=== PATIENT | male | born 1960 | race Hispanic/Latino ===

== ENCOUNTER 2016-03-19 05:31 | Inpatient (IN) | payer OTHER ==
[2016-03-19 06:35] LABS: Basophils % (Auto) 0.8 % (0.0-1.8); Eosinophils % (Auto) 2.7 % (0.0-4.3); Hematocrit 44.6 % (35.5-45.6); Hemoglobin 15.1 gm/dl (11.8-15.2); Mean Corpuscular HGB Conc 34 % (32-34); Mean Corpuscular Hemoglobin 32 pg (28-32); Mean Corpuscular Volume 95 fl (84-94); Platelet Count 312 K/mm3 (140-440); Red Blood Count 4.71 M/mm3 (3.65-5.03); Red Cell Distribution Width 13.1 % (13.2-15.2); White Blood Count 5.2 K/mm3 (4.5-11.0)
[2016-03-19 06:49] LABS: BUN/Creatinine Ratio 13.33; Blood Urea Nitrogen 8 mg/dL (9-20); Calcium 8.9 mg/dL (8.4-10.2); Carbon Dioxide 21 mmol/L (22-30); Glucose 161 mg/dL (75-100)
[2016-03-19 06:50] LABS: Chloride 93.8 mmol/L (98-107); Potassium 3.9 mmol/L (3.6-5.0); Sodium 133 mmol/L (137-145)
[2016-03-19 06:53] LABS: Anion Gap 22 mmol/L
[2016-03-19 07:22] LABS: Cholesterol 225 mg/dL (50-199); HDL Cholesterol 54 mg/dL (40-59); LDL Cholesterol,Direct 129 mg/dL (50-130); Triglycerides 214 mg/dL (2-149)
--- NOTE | 2016-03-19 07:36 | Emergency Department Report ---
ED Chest Pain HPI - General Chief Complaint: Chest Pain Stated Complaint: CHEST PAIN Time Seen by Provider: 03/19/16 07:32 Source: patient, EMS Mode of arrival: Ambulatory Limitations: No Limitations - History of Present Illness Initial Comments: This is a 55-year-old male who presents to the emergency department via EMS from home with complaint of sternal left-sided chest pain that began about 3 hours prior to presentation. He denies any nausea or vomiting, shortness of breath. He did complain of some left arm numbness earlier. Patient took 650 mg of aspirin and received one sublingual nitroglycerin by EMS and states he is feeling much better. It is not completely resolve but it is much improved down from a 7 out of 10, to a 3 out of 10. He has a history of previous coronary artery disease with ND and has 2 stents placed. The last time he had this was in 2009. Patient had a stress test in February 2015. His kinesiology professor is Dr. Rashard Braden. He admits to drinking about 2 pitchers of beer this evening. He is a former smoker. Denies illicit drug use or abuse. No recent travel or sick contacts at home. 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 - Related Data Home Medications Medication Instructions Recorded Confirmed Last Taken Allopurinol [Zyloprim] 100 mg PO QDAY 03/19/16 03/19/16 03/12/16 Carvedilol [Coreg] 6.25 mg PO BID 03/19/16 03/19/16 03/12/16 Clopidogrel Bisulfate [Plavix] 75 mg PO DAILY 03/19/16 03/19/16 03/12/16 Lisinopril [Zestril TAB] 2.5 mg PO QDAY 03/19/16 03/19/16 03/12/16 Simvastatin [Zocor TAB] 40 mg PO QHS 03/19/16 03/19/16 03/12/16 Allergies Allergy/AdvReac Type Severity Reaction Status Date / Time No Known Allergies Allergy Verified 03/19/16 06:06 FAUZIA score - Fauzia Score Age > 65: (0) No Aspirin use within the Past 7 Days: (1) Yes 3 or more CAD Risk Factors: (1) Yes 2 or more Angina events in past 24 hrs: (1) Yes Known CAD with more than 50% Stenosis: (0) No Elevated Cardiac Markers: (1) Yes ST Deviation Greater than 0.5mm: (0) No FAUZIA Score: 4 ED Review of Systems ROS: Stated complaint: CHEST PAIN Other details as noted in HPI Comment: All other systems reviewed and negative Constitutional: denies: chills, fever Eyes: denies: eye pain, eye discharge, vision change ENT: denies: ear pain, throat pain Respiratory: denies: cough, shortness of breath, wheezing Cardiovascular: chest pain. denies: palpitations Gastrointestinal: denies: abdominal pain, nausea, diarrhea Genitourinary: denies: urgency, dysuria Musculoskeletal: denies: back pain, joint swelling, arthralgia Skin: denies: rash, lesions Neurological: denies: headache, weakness, paresthesias ED Past Medical Hx - Past Medical History Previous Medical History?: Yes Hx Hypertension: Yes Hx Heart Attack/AMI: Yes - Surgical History Past Surgical History?: Yes Hx Coronary Stent: Yes (x2) - Social History Smoking Status: Never Smoker Substance Use Type: Alcohol - Medications Home Medications: Home Medications Medication Instructions Recorded Confirmed Last Taken Type Allopurinol [Zyloprim] 100 mg PO QDAY 03/19/16 03/19/16 03/12/16 History Carvedilol [Coreg] 6.25 mg PO BID 03/19/16 03/19/16 03/12/16 History Clopidogrel Bisulfate [Plavix] 75 mg PO DAILY 03/19/16 03/19/16 03/12/16 History Lisinopril [Zestril TAB] 2.5 mg PO QDAY 03/19/16 03/19/16 03/12/16 History Simvastatin [Zocor TAB] 40 mg PO QHS 03/19/16 03/19/16 03/12/16 History ED Physical Exam - General Limitations: No Limitations - Other Other exam information: GENERAL: The patient is well-developed well-nourished. HEENT: Normocephalic. Atraumatic. Extraocular motions are intact. Patient has moist mucous membranes. Pupils equal reactive to light bilaterally. NECK: Supple. Trachea is midline. CHEST/LUNGS: Clear to auscultation. There is no respiratory distress noted. HEART/CARDIOVASCULAR: Regular. There is no tachycardia. There is no gallop rub or murmur. ABDOMEN: Abdomen is soft, nontender. Patient has normal bowel sounds. There is no abdominal distention. SKIN: There is no rash. There is no edema. There is no diaphoresis. NEURO: The patient is awake, alert, and oriented. The patient is cooperative. The patient has no focal neurologic deficits. The patient has normal speech. MUSCULOSKELETAL: There is no tenderness or deformity. There is no limitation range of motion. There is no evidence of acute injury. ED Course Vital Signs 03/19/16 03/19/16 03/19/16 06:00 07:28 07:31 Temperature 97.6 F Pulse Rate 86 85 82 Respiratory 13 16 Rate Blood Pressure 143/97 156/96 O2 Sat by Pulse 97 99 98 Oximetry 03/19/16 03/19/16 07:36 08:14 Temperature Pulse Rate 86 Respiratory 16 Rate Blood Pressure O2 Sat by Pulse 99 Oximetry - Consultations Consultation #1: Spoke with Dr. Molina of [facility] and he will come see the patient in the emergency department. 03/19/16 10:00 ED Medical Decision Making - Lab Data Result diagrams: 03/19/16 06:26 03/19/16 06:26 - EKG Data -: EKG Interpreted by Me EKG shows normal: sinus rhythm, axis, intervals, QRS complexes, ST-T waves (T- wave inversions to the inferior leads) Rate: normal - EKG Data When compared to previous EKG there are: previous EKG unavailable Interpretation: other (T-wave inversions to the inferior leads) - Radiology Data Radiology results: report reviewed, image reviewed interpreted by me: Chest x-ray did not show any acute process. Heart is normal shape and size. No effusions. No pneumothorax. No signs of pneumonia seen. CT angiography of the chest shows no pulmonary embolism. HEENT coronary artery calcifications. Left coronary artery stent. Few subcentimeter nodular densities at the right lung likely round atelectasis and nodular scarring. - Medical Decision Making 55-year-old male presents with chest pain that started about 3 hours prior to presentation. EKG shows some possible ischemic changes in the inferior leads but no ST elevation ND. Chest x-ray does not show any acute process. First troponin is positive at about 0.1. CT angiography completed that did not show any pulmonary embolism or dissection. Patient started on IV heparin. He had already taken full dose aspirin and received sublingual nitroglycerin. Cardiology is aware. Patient accepted for admission by the hospitalist service. - Differential Diagnosis ND, PE, CHF, pneumonia Critical Care Time: No Critical care attestation.: If time is entered above; I have spent that time in minutes in the direct care of this critically ill patient, excluding procedure time. ED Disposition Clinical Impression: NSTEMI (non-ST elevated myocardial infarction) Hypertension Qualifiers: Hypertension type: essential hypertension Qualified Code(s): I10 - Essential ( primary) hypertension Coronary artery disease Qualifiers: Coronary Disease-Associated Artery/Lesion type: unspecified vessel or lesion type [place] vs. transplanted heart: unspecified whether [place] or transplanted heart Associated angina: with unspecified angina Qualified Code(s): I25.119 - Atherosclerotic heart disease of [place] coronary artery with unspecified angina pectoris Chest pain Qualifiers: Chest pain type: unspecified Qualified Code(s): R07.9 - Chest pain, unspecified Disposition: OP ADMITTED IP TO THIS HOSP Is pt being admited?: Yes Condition: Stable Instructions: Hypertension (ED), Chest Pain (ED) Time of Disposition: 09:59
[2016-03-19] MEDS ORDERED: NACL ONE (08:34)
--- NOTE | 2016-03-19 09:35 | Cat Scan Report ---
FINAL REPORT PROCEDURE: CT ANGIO CHEST TECHNIQUE: Computerized tomographic angiography of the chest was performed after the IV injection of iodinated nonionic contrast including image processing. The image data was postprocessed using 2-dimensional multiplanar reformatted (MPR) and 3-dimensional (MIP and/or volume rendered) techniques. HISTORY: Cp, elevated dimer COMPARISON: None FINDINGS: Heart and pericardium: Faint coronary artery calcifications. Left coronary artery stent. Thoracic aorta: Normal. Pulmonary vasculature: Normal. No pulmonary embolism. Lymph nodes: No enlarged thoracic lymph nodes. Lungs: Mild dependent subsegmental atelectasis. Faint nodular densities likely nodular scars or rounded atelectasis of the right middle lobe 3.9 millimeters seen on series 3, image 57 and 3.5 millimeters seen on image 56. 4 millimeter subpleural nodular density rounded subsegmental atelectasis seen on image 76.. Pleural space: No effusion or pneumothorax. Musculoskeletal structures: No significant abnormality. Upper abdominal structures: 1 centimeter medial segment left lobe hepatic cyst. IMPRESSION: No pulmonary embolism. Faint coronary artery calcifications. Left coronary artery stent. Coronary artery disease risk assessment is recommended. Few sub centimeter nodular densities of the right lung likely rounded atelectasis and nodular scar. Follow-up CT in 6 months time to ensure short-term stability in size/resolution is recommended. 1 centimeter left lobe hepatic cyst.
[2016-03-19] MEDS ORDERED: HEPARIN 10,000 UNITS/10 ML IV ONE ×2 (09:39→19:24)
[2016-03-19 10:03] LABS: INR 0.92 (0.87-1.13); Partial Thromboplastin Time 28.1 Sec. (24.2-36.6)
[2016-03-19] MEDS: HEPARIN/ 0.45% NACL-25,000 UNIT/500 ML 500 ML IV SCH (10:08)
[2016-03-19] MEDS ORDERED: TRIDIL DRIP 50MG/250ML 250 ML ONE (10:21)
[2016-03-19] MEDS ORDERED: PLAVIX ONE (10:29)
[2016-03-19] MEDS ORDERED: PLAVIX PO ONE (10:38)
[2016-03-19] MEDS: TRIDIL DRIP 50MG/250ML 250 ML IV SCH (10:39)
--- NOTE | 2016-03-19 10:58 | Consultation ---
History of Present Illness Consult date: 03/19/16 Consult reason: chest pain History of present illness: 55 year old male admitted due to chest tightness that started 3-4 hours prior to arrival to the ER. Patient is currently asymptomatic. Troponin noted positive. Patient has been out of his meds for 1 week - he is not able to afford his prescriptions. Last seen in our office Feb 15, 2016. ECG reviewed, there is ST elevation noted in the inferior leads associated with inferior Q waves with reciprocal ST depressions in the lateral leads. ECGs were also reviewed by Dr Weaver in order to evaluate whether patient should be taken to clinical lab technologist emergently. Since patient is asymptomatic, and ECG already showing Q waves in the inferior leads it was decided to admits patient, treat him medically and schedule him for elective cath on monday. No need for emergency cath since the event seems to have happened a while ago. Past History Past Medical History: CAD, hypertension Past Surgical History: PTCA Social history: no significant social history Family history: no significant family history Medications and Allergies Allergies Allergy/AdvReac Type Severity Reaction Status Date / Time No Known Allergies Allergy Verified 03/19/16 06:06 Home Medications Medication Instructions Recorded Confirmed Last Taken Type Allopurinol [Zyloprim] 100 mg PO QDAY 03/19/16 03/19/16 03/12/16 History Carvedilol [Coreg] 6.25 mg PO BID 03/19/16 03/19/16 03/12/16 History Clopidogrel Bisulfate [Plavix] 75 mg PO DAILY 03/19/16 03/19/16 03/12/16 History Lisinopril [Zestril TAB] 2.5 mg PO QDAY 03/19/16 03/19/16 03/12/16 History Simvastatin [Zocor TAB] 40 mg PO QHS 03/19/16 03/19/16 03/12/16 History Active Meds: Active Medications Heparin Sodium/Sodium Chloride (Heparin/ 0.45% Nacl-25,000 Unit/500 Ml) 500 mls @ 20 mls/hr IV TITRATE CANDICE; 1,000 UNITS/HR PRN Reason: Protocol Last Admin: 03/19/16 10:08 Dose: 20 mls/hr Nitroglycerin/Dextrose (Tridil Drip 50mg/250ml) 250 mls @ 3 mls/hr IV TITR CANDICE ; 10 MCG/MIN PRN Reason: Protocol Last Admin: 03/19/16 10:39 Dose: 3 mls/hr Review of Systems All systems: negative Physical Examination Vital Signs Temp Pulse BP Pulse Ox 97.6 F 86 143/97 97 03/19/16 06:00 03/19/16 06:00 03/19/16 06:00 03/19/16 06:00 General appearance: no acute distress HEENT: Positive: PERRL Neck: Positive: neck supple Cardiac: Positive: Reg Rate and Rhythm Lungs: Positive: Normal Exam Neuro: Positive: Grossly Intact Abdomen: Positive: Soft Extremities: Present: normal Results 03/19/16 06:26 03/19/16 06:26 Coagulation 03/19/16 Range/Units 07:45 PT 12.3 (12.2-14.9) Sec. INR 0.92 (0.87-1.13) APTT 28.1 (24.2-36.6) Sec. Lipids 03/19/16 Range/Units 06:26 Triglycerides 214 H (2-149) mg/dL Cholesterol 225 H (50-199) mg/dL HDL Cholesterol 54 (40-59) mg/dL Cholesterol/HDL Ratio 4.16 % CBC 03/19/16 Range/Units 06:26 WBC 5.2 (4.5-11.0) K/mm3 RBC 4.71 (3.65-5.03) M/mm3 Hgb 15.1 (11.8-15.2) gm/dl Hct 44.6 (35.5-45.6) % Plt Count 312 (140-440) K/mm3 Lymph # 1.4 (1.2-5.4) K/mm3 Rush # 0.3 (0.0-0.8) K/mm3 Eos # 0.1 (0.0-0.4) K/mm3 Baso # 0.0 (0.0-0.1) K/mm3 Comprehensive Metabolic Panel 03/19/16 Range/Units 06:26 Sodium 133 L (137-145) mmol/L Potassium 3.9 (3.6-5.0) mmol/L Chloride 93.8 L (98-107) mmol/L Carbon Dioxide 21 L (22-30) mmol/L BUN 8 L (9-20) mg/dL Creatinine 0.6 L (0.8-1.5) mg/dL Glucose 161 H (75-100) mg/dL Calcium 8.9 (8.4-10.2) mg/dL - EKG Interpretation EKG: sinus rhythm EKG interpretations - Telemetry EKG Rhythm: Sinus Rhythm Assessment and Plan Non-STEMI Patient ic currently asymptomatic ECG consitent with a completed NE and formation of Q waves inferiorly CAD s/p PCI to LAD and CX in 2009 Systemic Hypertension Hyperlipidemia Non-compliance Recommendations: Admit to CCU IV heparin, IV NTG, asa, lipitor, metoprolol, plavix Echocardiogram Coronary angiography on monday
--- NOTE | 2016-03-19 11:09 | History and Physical Report ---
History of Present Illness Date of examination: 03/19/16 Chief complaint: Chest pain History of present illness: Patient is a 55-year-old man with a history of alcohol abuse (2 big pitchers of beer each night, last drink was prior to presentation), hypertension, dyslipidemia, gout and coronary artery disease status post stents who presents with left severe pressure-like constant radiating to left arm chest pains is helped by nitroglycerin that started 3-4 hours prior to presentation. Currently , patient is chest pain-free free. Troponins were positive. Patient denies any nausea vomiting diaphoresis, Headaches, fever chills cough or abdominal pains. Patient will be admitted to the ICU because he is going to go nitroglycerin titratable drip per cardiology Dr. Molina. Patient admits to being out of his medication for more than a week. Patient has insurance but he uses his co-pay on "other things." Extensive counseling done. Past History Past Medical History: CAD, hypertension Past Surgical History: PTCA Social history: alcohol abuse, full code, other (ex-smoker). denies: smoking, prescription drug abuse, IV drug use Family history: no significant family history Medications and Allergies Allergies Allergy/AdvReac Type Severity Reaction Status Date / Time No Known Allergies Allergy Verified 03/19/16 06:06 Home Medications Medication Instructions Recorded Confirmed Last Taken Type Allopurinol [Zyloprim] 100 mg PO QDAY 03/19/16 03/19/16 03/12/16 History Carvedilol [Coreg] 6.25 mg PO BID 03/19/16 03/19/16 03/12/16 History Clopidogrel Bisulfate [Plavix] 75 mg PO DAILY 03/19/16 03/19/16 03/12/16 History Lisinopril [Zestril TAB] 2.5 mg PO QDAY 03/19/16 03/19/16 03/12/16 History Simvastatin [Zocor TAB] 40 mg PO QHS 03/19/16 03/19/16 03/12/16 History Active Meds: Active Medications Aspirin (Aspirin) 325 mg PO QDAY CANDICE Atorvastatin Calcium (Lipitor) 40 mg PO QHS [facility] Clopidogrel Bisulfate (Plavix) 75 mg PO DAILY [facility] Heparin Sodium/Sodium Chloride (Heparin/ 0.45% Nacl-25,000 Unit/500 Ml) 500 mls @ 20 mls/hr IV TITRATE CANDICE; 1,000 UNITS/HR PRN Reason: Protocol Last Admin: 03/19/16 10:08 Dose: 20 mls/hr Nitroglycerin/Dextrose (Tridil Drip 50mg/250ml) 250 mls @ 3 mls/hr IV TITR CANDICE ; 10 MCG/MIN PRN Reason: Protocol Last Admin: 03/19/16 10:39 Dose: 3 mls/hr Metoprolol Tartrate (Lopressor) 25 mg PO Q12H CANDICE Review of Systems All systems: negative (as HPI and all other ROS reviewed and negative.) Exam - Physical Exam Narrative exam: GEN: WDWN, NAD, AWAKE, ALERT, ORIENTATED 3 HEENT: NCAT, PERRL, EOMI, OP CLEAR NECK: SUPPLE, NO THYROMEGALY, NO JVD, NO LAD CVS: RRR, NORMAL S1S2 LUNGS/CHEST: CTA B, NORMAL CHEST EXPANSION B, GOOD AIR ENTRY B ABD: SOFT NTND, GBS, NO REBOUND OR GUARDING EXT/SKIN: NO SIGNIFICANT EDEMA OR RASH MSK: FROM X 4 EXTREMITIES NEURO: CN 2-12 GROSSLY INTACT, NO FOCAL DEFICITS PSY: CALM - Constitutional Vitals: Temp Pulse Resp BP Pulse Ox 97.6 F 85 23 154/93 100 03/19/16 06:00 03/19/16 10:35 03/19/16 10:35 03/19/16 10:35 03/19/16 10:05 Results - Labs CBC & Chem 7: 03/19/16 06:26 03/19/16 06:26 Labs: Abnormal lab results 03/19/16 03/19/16 03/19/16 Range/Units 06:26 06:26 07:45 MCV 95 H (84-94) fl RDW 13.1 L (13.2-15.2) % D-Dimer 421.46 H (0-234) ng/mlDDU Sodium 133 L (137-145) mmol/L Chloride 93.8 L (98-107) mmol/L Carbon Dioxide 21 L (22-30) mmol/L BUN 8 L (9-20) mg/dL Creatinine 0.6 L (0.8-1.5) mg/dL Glucose 161 H (75-100) mg/dL Troponin T 0.142 H* (0.00-0.029) ng/mL Triglycerides 214 H (2-149) mg/dL Cholesterol 225 H (50-199) mg/dL 03/19/16 Range/Units 08:45 MCV (84-94) fl RDW (13.2-15.2) % D-Dimer (0-234) ng/mlDDU Sodium (137-145) mmol/L Chloride (98-107) mmol/L Carbon Dioxide (22-30) mmol/L BUN (9-20) mg/dL Creatinine (0.8-1.5) mg/dL Glucose (75-100) mg/dL Troponin T 0.134 H* (0.00-0.029) ng/mL Triglycerides (2-149) mg/dL Cholesterol (50-199) mg/dL - Imaging and Cardiology EKG: image reviewed Assessment and Plan Patient is a 55-year-old man with a history of alcohol abuse (2 big pitchers of beer each night, last drink was prior to presentation), hypertension, dyslipidemia, gout and coronary artery disease status post stents who presents with left severe pressure-like constant radiating to left arm chest pains is helped by nitroglycerin that started 3-4 hours prior to presentation. Currently , patient is asymptomatic. Troponins were positive. Patient denies any nausea vomiting diaphoresis, Headaches, fever chills cough or abdominal pains. Patient will be admitted to the ICU because of IV nitroglycerin titratable drip per cardiology Dr. Molina. Patient admits to being out of his medication for more than a week. Patient has insurance but he uses his co-pay on "other things." Extensive counseling done. 1. Non-STEMI: IV heparin, IV nitroglycerin, aspirin statin beta benjamin 2. Alcohol abuse: [facility] protocol, thiamine, watch for withdrawals 3. Coronary artery disease, chronic and worsening due to noncompliance 4. Hypertension related to above 5. DVT prophylaxis: On IV heparin 6. GI prophylaxis: Pepcid Full code Disposition: inpatient care, cardiac cath on Monday Consulted drilling supervisor for ICU admission
[2016-03-19] MEDS ORDERED: ATIVAN IV PRN ×2 (11:12)
[2016-03-19] MEDS ORDERED: HALDOL IV PRN (11:12)
[2016-03-19] MEDS ORDERED: TYLENOL PO PRN (11:13)
[2016-03-19 12:21] LABS: Creatine Kinase MB 4.9 ng/mL (0.0-4.0)
[2016-03-19] MEDS ORDERED: LOPRESSOR ONE (13:01)
[2016-03-19] MEDS ORDERED: VITAMIN B-1 ONE (13:01)
[2016-03-19] MEDS: LOPRESSOR PO SCH (13:05)
[2016-03-19] MEDS: VITAMIN B-1 PO SCH (13:06)
[2016-03-19 18:58] LABS: Creatine Kinase MB 19.8 ng/mL (0.0-4.0)
[2016-03-19] MEDS ORDERED: HEPARIN 10,000 UNITS/10 ML ONE (19:16)
[2016-03-19] MEDS ORDERED: HEPARIN IV ONE (19:24)
[2016-03-19] MEDS: PEPCID PO SCH (22:26)
[2016-03-19] MEDS: AMBIEN PO PRN (22:26)
[2016-03-20 00:57] LABS: Creatine Kinase MB 28.8 ng/mL (0.0-4.0)
--- NOTE | 2016-03-20 01:02 | Admit Criteria Form ---
Admission Criteria Documentation: MYOCARDIAL INFARCTION Clinical Indications for Admission to Inpatient Care (Place 'X' for any and all applicable criteria): Admission is indicated for ANY ONE of the following (1)(2)(3)(4): [X ]I. Acute HI [ ]II. Contraindications and/or Inappropriate clinical situations for Observational Care in patients with Myocardial Infarction, when ANY ONE of the following is required: [ ]a) Patient with High risk of cardiac embolism (e.g, patients with previous cardiac embolism, LVEF < 40%, age >75 and patients with prosthetic valve) 18 [ ]b) Patient with Moderate risk including DM patient, CAD and patient aged 65-75 18 [ ]c) Patient with any change in cardiac biomarker especially troponin should be managed as high risk in an inpatient setting 19 [ ]d) Physician judgement irrespective of ECG and other diagnostic findings 20 [ ]III.General contraindications and/or Inappropriate clinical situations for Observational Care in patients with Myocardial Infarction, when ANY ONE of the following is required: [ ]a) Prediction of prolongation of LOS based on ANY ONE of the following may be considered as a contraindication for observational care 2, 3, 4, 5, 6, 7, 8, 9, 10, 11 [ ]i) Age > 65 yrs. [ ]ii) Patient arriving by ambulance [ ]iii) Patient with high acuity [ ]iv) Patient requiring vital sign monitoring [ ]v) Patient on IV medication [ ]b) Systolic blood pressures 180mmHg 3,12 [ ]c) Patient with altered mental status including delirium and other alteration of consciousness, (3) [ ]d) Patient whose discharge disposition will be to a half-way home or rehabilitation home should not be managed in Emergency Department Observation Unit. CMS rule requires 3 days hospital stay before such placement. 3,13 [ ]e) Patient with failure to thrive due to broad array of etiologies 3 ,16,17 [ ]f) Inability to ambulate 3,14 Extended stay beyond goal length of stay may be needed for (1)(18)(20)(24)(25): [ ]a) Hemodynamic instability, persisting symptoms after intensive medical management, or recurring severe, prolonged symptoms [ ]b) Intravascular procedural complications such as acute vessel closure, stent thrombosis, stent malposition, or vessel dissection (26)(27)(28) [ ]c) Extravascular procedural complications such as retroperitoneal hematoma , pericardial effusion, or cardiac tamponade [ ]d) Entry site complications causing bleeding, hematoma or distal ischemia and requiring ongoing monitoring, surgical repair or surgical thrombectomy(29) [ ]e) Dangerous arrhythmia [ ]f) Complicated percutaneous coronary intervention (e.g., unsuccessful percutaneous coronary intervention or percutaneous coronary intervention of non- [place] vessel) [ ]g) Urgent or emergent surgery for complications of HI (e.g., ventricular rupture, valvular insufficiency) [ ]h) Surgical revascularization via coronary artery bypass graft [ ]i) Heart failure (e.g., pulmonary edema) [ ]j) Unstable pulmonary comorbidities, including COPD or pneumonia (31) [ ]k) Acute renal failure The original [employer] content created by [email or web address] has been revised. The portions of the content which have been revised are identified through the use of italic text or in bold, and [employer] has neither reviewed nor approved the modified material. All other unmodified content is copyright [facility] [employer] Please see references footnoted in the original [facility] edition 2016 Admission Criteria Met: Yes
[2016-03-20] MEDS: LOPRESSOR PO SCH ×2 (03:31→23:48)
--- NOTE | 2016-03-20 09:23 | Progress Note ---
Assessment and Plan Non-STEMI Patient ic currently asymptomatic ECG consitent with a completed GA and formation of Q waves inferiorly CAD s/p PCI to LAD and CX in 2009 Systemic Hypertension Hyperlipidemia Non-compliance Recommendations: IV heparin, IV NTG, asa, lipitor, metoprolol, plavix Echocardiogram Coronary angiography on monday Subjective Date of service: 03/20/16 Principal diagnosis: NSTEMI Interval history: he describes occasional 1-2/10 chest pain overnight. ECG this morning - stable Objective Vital Signs Temp Pulse Resp BP Pulse Ox 03/20/16 08:00 97.6 F 03/20/16 07:15 88 24 140/88 97 03/20/16 07:11 74 19 135/76 99 03/20/16 07:05 73 18 135/76 99 03/20/16 07:00 68 18 135/76 99 03/20/16 06:55 68 18 134/69 100 03/20/16 06:51 69 18 134/69 99 03/20/16 06:45 66 17 134/69 99 03/20/16 06:41 69 18 128/64 99 03/20/16 06:35 70 17 128/64 99 03/20/16 06:30 65 17 128/64 99 03/20/16 06:25 73 19 133/69 98 03/20/16 06:21 77 13 133/69 99 03/20/16 06:15 72 17 133/69 97 03/20/16 06:11 87 17 152/81 98 03/20/16 06:05 93 H 20 152/81 98 03/20/16 06:00 76 16 152/81 98 03/20/16 05:55 78 18 145/81 98 03/20/16 05:51 75 16 145/81 98 03/20/16 05:45 95 H 17 145/81 97 03/20/16 05:41 72 18 138/80 99 03/20/16 05:35 72 18 138/80 99 03/20/16 05:30 73 19 138/80 98 03/20/16 05:25 79 13 145/86 99 03/20/16 05:21 70 17 145/86 100 03/20/16 05:15 74 22 145/86 99 03/20/16 05:11 83 22 138/68 97 03/20/16 05:05 78 21 138/68 97 03/20/16 05:01 78 17 138/68 98 03/20/16 04:55 81 20 138/68 98 03/20/16 04:51 75 17 138/68 98 03/20/16 04:45 71 18 138/68 97 03/20/16 04:41 75 18 145/73 98 03/20/16 04:35 70 17 145/73 99 03/20/16 04:30 74 17 145/73 99 03/20/16 04:25 71 18 136/71 99 03/20/16 04:21 74 18 136/71 99 03/20/16 04:15 74 19 136/71 98 03/20/16 04:11 79 14 141/70 99 03/20/16 04:05 75 17 141/70 99 03/20/16 04:00 77 18 141/70 98 03/20/16 03:55 72 19 134/69 100 03/20/16 03:51 72 21 134/69 99 03/20/16 03:45 67 20 134/69 100 03/20/16 03:41 74 18 121/70 99 03/20/16 03:35 71 21 121/70 99 03/20/16 03:31 130 H 88/65 03/20/16 03:30 75 20 121/70 99 03/20/16 03:25 76 21 129/80 99 03/20/16 03:21 82 22 129/80 98 03/20/16 03:17 74 19 129/80 99 03/20/16 03:15 73 20 129/80 99 03/20/16 03:11 76 20 124/58 99 03/20/16 03:05 91 H 19 124/58 99 03/20/16 03:00 69 13 124/58 98 03/20/16 02:55 76 20 133/77 98 03/20/16 02:51 73 20 133/77 98 03/20/16 02:49 74 19 133/77 98 03/20/16 02:45 74 18 133/77 99 03/20/16 02:41 76 21 121/63 99 03/20/16 02:35 72 20 121/63 98 03/20/16 02:30 72 18 121/63 99 03/20/16 02:25 72 18 128/61 99 03/20/16 02:21 73 18 128/61 99 01/08/17 02:15 73 19 128/61 99 03/20/16 02:11 72 18 136/81 99 03/20/16 02:05 74 18 136/81 99 03/20/16 02:00 77 19 136/81 97 03/20/16 01:55 75 19 135/75 96 03/20/16 01:51 76 19 135/75 96 03/20/16 01:45 79 18 135/75 97 03/20/16 01:41 82 19 134/80 97 03/20/16 01:35 88 17 134/80 97 03/20/16 01:30 78 20 134/80 98 03/20/16 01:25 79 21 126/72 97 03/20/16 01:21 80 21 126/72 97 03/20/16 01:15 75 19 126/72 97 03/20/16 01:11 77 21 128/68 96 03/20/16 01:05 80 19 128/68 97 03/20/16 01:00 76 19 128/68 100 03/20/16 00:55 73 18 131/63 99 03/20/16 00:51 74 22 131/63 99 03/20/16 00:45 71 21 131/63 99 03/20/16 00:41 74 22 141/88 98 03/20/16 00:35 81 15 141/88 99 03/20/16 00:30 81 22 141/88 97 03/20/16 00:25 83 16 147/81 98 03/20/16 00:21 84 21 147/81 98 03/20/16 00:15 81 15 125/62 99 03/20/16 00:11 85 23 125/62 97 03/20/16 00:05 79 19 125/62 98 03/20/16 00:00 76 19 121/59 98 03/19/16 23:55 78 19 125/62 98 03/19/16 23:51 75 20 125/62 98 03/19/16 23:45 88 19 125/62 97 03/19/16 23:41 86 21 121/76 99 03/19/16 23:35 88 19 121/76 97 03/19/16 23:30 84 19 121/76 98 03/19/16 23:25 82 20 125/81 98 03/19/16 23:21 82 18 125/81 98 03/19/16 23:15 87 20 125/81 98 03/19/16 23:11 84 19 111/59 99 03/19/16 23:05 82 21 111/59 99 03/19/16 23:00 81 19 119/79 98 03/19/16 22:55 84 22 111/59 98 03/19/16 22:51 85 16 111/59 98 03/19/16 22:45 80 23 111/59 98 03/19/16 22:41 80 20 128/65 97 03/19/16 22:35 80 17 128/65 97 03/19/16 22:30 83 21 128/65 97 03/19/16 22:25 82 21 132/77 96 03/19/16 22:21 85 20 132/77 96 03/19/16 22:15 82 21 132/77 96 03/19/16 22:11 84 21 127/79 97 03/19/16 22:05 83 21 127/79 97 03/19/16 22:00 85 22 127/79 97 03/19/16 21:55 80 20 145/85 97 03/19/16 21:51 82 23 145/85 97 03/19/16 21:45 97 H 20 145/85 98 03/19/16 21:41 84 18 143/81 98 03/19/16 21:35 87 21 143/81 98 03/19/16 21:30 86 23 143/81 98 03/19/16 21:25 88 11 L 135/85 97 03/19/16 21:21 87 12 135/85 99 03/19/16 21:15 91 H 22 135/85 98 03/19/16 21:11 80 19 121/63 97 03/19/16 21:05 81 20 121/63 98 03/19/16 21:00 81 22 121/63 98 03/19/16 20:55 87 18 149/83 98 03/19/16 20:51 89 17 149/83 98 03/19/16 20:45 88 21 149/83 98 03/19/16 20:41 86 20 141/79 100 03/19/16 20:35 89 17 141/79 99 03/19/16 20:30 83 18 141/79 98 03/19/16 20:25 88 14 133/78 98 03/19/16 20:21 87 11 L 133/78 98 03/19/16 20:15 85 19 133/78 98 03/19/16 20:11 91 H 15 144/87 98 03/19/16 20:05 90 13 144/87 98 03/19/16 20:00 89 20 144/87 97 03/19/16 19:55 84 20 140/79 98 03/19/16 19:51 82 23 140/79 98 03/19/16 19:45 90 20 140/79 97 03/19/16 19:41 88 25 H 132/66 96 03/19/16 19:35 93 H 20 132/66 97 03/19/16 19:31 87 20 132/66 97 03/19/16 19:25 86 18 134/78 97 03/19/16 19:21 84 18 134/78 97 03/19/16 19:15 88 15 134/78 98 03/19/16 19:11 88 19 139/82 97 03/19/16 19:05 89 20 139/82 97 03/19/16 19:00 88 15 139/82 98 03/19/16 18:55 96 H 17 140/92 98 03/19/16 18:51 90 21 140/92 98 03/19/16 18:45 91 H 20 140/92 98 03/19/16 18:41 89 18 145/96 98 03/19/16 18:35 95 H 12 145/96 98 03/19/16 18:30 101 H 20 145/96 98 03/19/16 18:25 86 22 138/68 97 03/19/16 18:23 84 21 138/68 97 03/19/16 18:21 83 22 138/68 97 03/19/16 18:15 85 24 138/68 98 03/19/16 18:11 87 17 154/85 98 03/19/16 18:05 87 23 154/85 98 03/19/16 18:00 88 20 154/85 98 03/19/16 17:55 87 17 148/88 99 03/19/16 17:51 93 H 20 148/88 99 03/19/16 17:47 94 H 22 148/88 99 03/19/16 17:45 94 H 15 148/88 99 03/19/16 17:41 93 H 18 155/89 99 03/19/16 17:35 92 H 22 155/89 99 03/19/16 17:31 96 H 17 160/95 98 03/19/16 17:25 97 H 18 160/95 99 03/19/16 17:21 93 H 17 174/99 99 03/19/16 17:15 85 20 174/99 98 03/19/16 17:11 86 21 174/99 98 03/19/16 17:05 85 18 174/99 98 03/19/16 17:00 90 18 174/99 98 03/19/16 16:55 90 18 160/95 98 03/19/16 16:51 91 H 22 160/95 98 03/19/16 16:45 87 17 160/95 100 03/19/16 16:41 81 14 160/95 98 03/19/16 16:35 84 13 160/95 98 03/19/16 16:31 75 22 160/95 97 03/19/16 16:25 78 17 160/95 99 03/19/16 16:21 85 17 160/95 99 03/19/16 16:15 83 18 160/95 98 03/19/16 16:11 79 16 160/95 99 03/19/16 16:05 78 14 160/95 99 03/19/16 16:00 79 17 160/95 99 03/19/16 15:55 76 20 149/78 99 03/19/16 15:51 78 18 149/78 98 03/19/16 15:45 77 18 149/78 98 03/19/16 15:41 76 19 149/78 98 03/19/16 15:35 76 20 149/78 98 03/19/16 15:31 78 19 149/78 99 03/19/16 15:25 73 18 149/78 99 03/19/16 15:20 74 20 149/78 99 03/19/16 15:15 75 19 149/78 98 03/19/16 15:13 76 19 149/78 98 03/19/16 15:11 75 21 149/78 98 03/19/16 15:05 79 20 149/78 98 03/19/16 15:00 76 20 149/78 99 03/19/16 14:55 77 21 173/98 98 03/19/16 14:51 78 19 173/98 99 03/19/16 14:45 73 22 173/98 98 03/19/16 14:41 86 19 173/98 99 03/19/16 14:35 75 17 173/98 99 03/19/16 14:31 80 11 L 173/98 99 03/19/16 14:25 80 20 173/98 99 03/19/16 14:21 82 12 173/98 99 03/19/16 14:15 80 16 173/98 99 03/19/16 14:11 78 21 173/98 99 03/19/16 14:05 80 14 173/98 99 03/19/16 14:00 82 12 173/98 99 03/19/16 13:58 100 H 22 99 03/19/16 13:05 99 H 14 162/99 03/19/16 13:00 92 H 21 145/87 03/19/16 12:55 95 H 20 143/90 03/19/16 12:50 96 H 20 147/89 03/19/16 12:45 97 H 19 156/92 03/19/16 12:41 95 H 20 149/90 03/19/16 12:40 95 H 19 149/90 03/19/16 12:35 95 H 18 155/95 03/19/16 12:30 94 H 19 153/92 03/19/16 12:25 95 H 19 161/97 - Physical Examination HEENT: Positive: PERRL Neck: Positive: neck supple Cardiac: Positive: Reg Rate and Rhythm Lungs: Positive: Normal Exam Neuro: Positive: Grossly Intact Abdomen: Positive: Soft Extremities: Present: normal - Labs and Meds Cardiac Enzymes 03/19/16 03/20/16 Range/Units 17:49 00:11 CK-MB (CK-2) 19.8 H 28.8 H (0.0-4.0) ng/mL - Imaging and Cardiology EKG: image reviewed
--- NOTE | 2016-03-20 09:31 | Consultation ---
History of Present Illness - Reason for Consult Consult date: 03/20/16 NSTEMI/ICU CARE Requesting physician: RAN JACKSON - History of Present Illness 55 y/o obese white male with significant family cardiac history admitted with NSTEMI. Patient transitioned to unit as he is on nitro for chest pain. Per cards, cath on Monday. Patient with continued chest pain on nitro. Cards reviewed EKG this am. Past History Past Medical History: CAD, hypertension, other (gout) Past Surgical History: PTCA Social history: alcohol abuse, full code, other (ex-smoker). denies: smoking, prescription drug abuse, IV drug use Family history: other (Father and Brother both with heart attacks before age 50. ) Medications and Allergies Allergies Allergy/AdvReac Type Severity Reaction Status Date / Time No Known Allergies Allergy Verified 03/19/16 06:06 Home Medications Medication Instructions Recorded Confirmed Last Taken Type Allopurinol [Zyloprim] 100 mg PO QDAY 03/19/16 03/19/16 03/12/16 History Carvedilol [Coreg] 6.25 mg PO BID 03/19/16 03/19/16 03/12/16 History Clopidogrel Bisulfate [Plavix] 75 mg PO DAILY 03/19/16 03/19/16 03/12/16 History Lisinopril [Zestril TAB] 2.5 mg PO QDAY 03/19/16 03/19/16 03/12/16 History Simvastatin [Zocor TAB] 40 mg PO QHS 03/19/16 03/19/16 03/12/16 History Active Meds: Active Medications Acetaminophen (Tylenol) 650 mg PO Q6H PRN PRN Reason: Non Cardiac Pain or Temp>100.5 Aspirin (Aspirin) 325 mg PO QDAY [facility] Atorvastatin Calcium (Lipitor) 40 mg PO QHS [facility] Last Admin: 03/19/16 22:26 Dose: 40 mg Clopidogrel Bisulfate (Plavix) 75 mg PO DAILY [facility] Famotidine (Pepcid) 20 mg PO BID [facility] Last Admin: 03/19/16 22:26 Dose: 20 mg Folic Acid (Folvite) 1 mg PO QDAY [facility] Haloperidol Lactate (Haldol) 5 mg IV Q1H PRN PRN Reason: Unrespon. to mult. doses BZD's Heparin Sodium/Sodium Chloride (Heparin/ 0.45% Nacl-25,000 Unit/500 Ml) 500 mls @ 20 mls/hr IV TITRATE CANDICE; 1,000 UNITS/HR PRN Reason: Protocol Last Titration: 03/20/16 00:30 Dose: 1,300 units/hr Nitroglycerin/Dextrose (Tridil Drip 50mg/250ml) 250 mls @ 3 mls/hr IV TITR CANDICE ; 10 MCG/MIN PRN Reason: Protocol Last Titration: 03/19/16 16:49 Dose: 30 mcg/min Sodium Chloride (Nacl 0.9% 500 Ml) 500 mls @ 50 mls/hr IV DIRECT CANDICE Stop: 03/20/16 19:59 Lorazepam (Ativan) 2 mg IV Q1H PRN PRN Reason: CIWA-Ar 8-15 Lorazepam (Ativan) 4 mg IV Q1H PRN PRN Reason: CIWA-Ar 16-25 Metoprolol Tartrate (Lopressor) 25 mg PO Q12H [facility]ICE Last Admin: 03/20/16 03:31 Dose: Not Given Thiamine HCl (Vitamin B-1) 100 mg PO QDAY C[facility]ICE Last Admin: 03/19/16 13:06 Dose: 100 mg Zolpidem Tartrate (Ambien) 5 mg PO QHS PRN PRN Reason: Sleep Last Admin: 03/19/16 22:26 Dose: 5 mg Review of Systems All systems: negative Cardiovascular: chest pain (with exertion and sometimes at rest) Exam - Constitutional Vitals: Temp Pulse Resp BP Pulse Ox 97.6 F 88 24 140/88 97 03/20/16 08:00 03/20/16 07:15 03/20/16 07:15 03/20/16 07:15 03/20/16 07:15 General appearance: Present: no acute distress - EENT Eyes: Present: PERRL, EOM intact ENT: hearing intact, clear oral mucosa - Neck Neck: Present: supple, other (large in diameter) - Respiratory Respiratory effort: normal Respiratory: bilateral: CTA - Cardiovascular Rhythm: regular - Abdominal General gastrointestinal: Present: soft, other (obese) Male genitourinary: Present: deferred - Rectal Rectal Exam: deferred Results - Labs CBC & Chem 7: 03/19/16 06:26 03/19/16 06:26 Labs: Abnormal lab results 03/19/16 03/19/1603/20/17 Range/Units 17:49 17:49 00:11 Heparin Anti-Xa Level < 0.10 L (0.3-0.7) U.I./ml POC Glucose (70-105) Total Creatine Kinase 180 H 266 H (55-170) units/L CK-MB (CK-2) 19.8 H 28.8 H (0.0-4.0) ng/mL CK-MB (CK-2) Rel Index 11.0 H 10.8 H (0-4) Troponin T 0.195 H* D (0.00-0.029) ng/mL 03/20/16 Range/Units 07:57 Heparin Anti-Xa Level (0.3-0.7) U.I./ml POC Glucose 144 H (70-105) Total Creatine Kinase (55-170) units/L CK-MB (CK-2) (0.0-4.0) ng/mL CK-MB (CK-2) Rel Index (0-4) Troponin T (0.00-0.029) ng/mL - Imaging and Cardiology CT scan - chest: report reviewed Assessment and Plan 55 y/o obese male with NSTEMI and continued chest pain with subcentimeter lower lobe nodules 1. ASA, Statin Beta benjamin and anticoagulation 2. Nitro drip for chest pain 3. Per cards cath on Monday 4. Nodules can be followed up as recommended by Rads in impression.
--- NOTE | 2016-03-20 11:15 | XRay Report ---
AP CHEST: HISTORY: chest pain AP view of the chest demonstrates a normal mediastinal and cardiac contour with clear lungs and normal bony and soft tissue structures. IMPRESSION: Unremarkable AP chest.
[2016-03-20] MEDS: PEPCID PO SCH ×2 (11:21→21:14)
[2016-03-20] MEDS: VITAMIN B-1 PO SCH (11:21)
[2016-03-20] MEDS: ASPIRIN PO SCH (11:21)
[2016-03-20] MEDS: PLAVIX PO SCH (11:21)
[2016-03-20] MEDS: NACL 0.9% 500 ML 500 ML IV SCH (11:22)
[2016-03-20] MEDS: FOLVITE PO SCH (11:22)
--- NOTE | 2016-03-20 13:08 | Progress Note ---
Assessment and Plan Assessment and plan: Patient is a 55-year-old man with a history of alcohol abuse (2 big pitchers of beer each night, last drink was prior to presentation), hypertension, dyslipidemia, gout and coronary artery disease status post stents who presents with left severe pressure-like constant radiating to left arm chest pains is helped by nitroglycerin that started 3-4 hours prior to presentation. Currently , patient is asymptomatic. Troponins were positive. Patient denies any nausea vomiting diaphoresis, Headaches, fever chills cough or abdominal pains. Patient will be admitted to the ICU because of IV nitroglycerin titratable drip per cardiology Dr. Molina. Patient admits to being out of his medication for more than a week. Patient has insurance but he uses his co-pay on "other things." Extensive counseling done. CTA chest: No PE, faint coronary artery calcification. Left coronary artery stent. Few subtle centimeter nodular densities of the right long likely rounded atelectasis and nodular scar. Follow -up CT in 6 months time to ensure short-term stability in size/resolution is recommended. 1 cm left lobe hepatic cyst. 1. Non-STEMI: IV heparin, IV nitroglycerin, aspirin statin beta benjamin 2. Alcohol abuse: CIWA protocol, thiamine, watch for withdrawals 3. Coronary artery disease, chronic and worsening due to noncompliance 4. Hypertension related to above 5. DVT prophylaxis: On IV heparin 6. GI prophylaxis: Pepcid Full code Disposition: inpatient care, cardiac cath on Monday Consulted premium cancellation clerk for ICU admission History Interval history: Patient seen and examined. Follow up on chest pain, which she had an another episode nitroglycerin drip was increased currently chest pain-free. No sob, n/ v or severe headaches. Imaging, old records, testing, labs, nursing notes reviewed. Hospitalist Physical - Physical exam Narrative exam: GEN: WDWN, NAD, AWAKE, ALERT, ORIENTATED 3 HEENT: NCAT, PERRL, EOMI, OP CLEAR NECK: SUPPLE, NO THYROMEGALY, NO JVD, NO LAD CVS: RRR, NORMAL S1S2 LUNGS/CHEST: CTA B, NORMAL CHEST EXPANSION B, GOOD AIR ENTRY B ABD: SOFT NTND, GBS, NO REBOUND OR GUARDING EXT/SKIN: NO SIGNIFICANT EDEMA OR RASH MSK: FROM X 4 EXTREMITIES NEURO: CN 2-12 GROSSLY INTACT, NO FOCAL DEFICITS PSY: CALM - Constitutional Vitals: Temp Pulse Resp BP Pulse Ox 97.9 F 83 25 H 133/82 99 03/20/16 12:00 03/20/16 11:30 03/20/16 11:30 03/20/16 11:30 03/20/16 11:30 General appearance: Present: no acute distress Results - Labs CBC & Chem 7: 03/19/16 06:26 03/19/16 06:26 Labs: Laboratory Last Values WBC 5.2 K/mm3 (4.5-11.0) 03/19/16 06:26 RBC 4.71 M/mm3 (3.65-5.03) 03/19/16 06:26 Hgb 15.1 gm/dl (11.8-15.2) 03/19/16 06:26 Hct 44.6 % (35.5-45.6) 03/19/16 06:26 MCV 95 fl (84-94) H 03/19/16 06:26 MCH 32 pg (28-32) 03/19/16 06:26 MCHC 34 % (32-34) 03/19/16 06:26 RDW 13.1 % (13.2-15.2) L 03/19/16 06:26 Plt Count 312 K/mm3 (140-440) 03/19/16 06:26 Lymph % (Auto) 26.9 % (13.4-35.0) 03/19/16 06:26 [place] % (Auto) 5.8 % (0.0-7.3) 03/19/16 06:26 Eos % (Auto) 2.7 % (0.0-4.3) 03/19/16 06:26 Baso % (Auto) 0.8 % (0.0-1.8) 03/19/16 06:26 Lymph # 1.4 K/mm3 (1.2-5.4) 03/19/16 06:26 [place] # 0.3 K/mm3 (0.0-0.8) 03/19/16 06:26 Eos # 0.1 K/mm3 (0.0-0.4) 03/19/16 06:26 Baso # 0.0 K/mm3 (0.0-0.1) 03/19/16 06:26 Seg Neutrophils % 63.8 % (40.0-70.0) 03/19/16 06:26 Seg Neutrophils # 3.3 K/mm3 (1.8-7.7) 03/19/16 06:26 PT 12.3 Sec. (12.2-14.9) 03/19/16 07:45 INR 0.92 (0.87-1.13) 03/19/16 07:45 APTT 28.1 Sec. (24.2-36.6) 03/19/16 07:45 D-Dimer 421.46 ng/mlDDU (0-234) H 03/19/16 07:45 Heparin Anti-Xa Level 0.33 U.I./ml (0.3-0.7) 03/20/16 06:15 Sodium 133 mmol/L (137-145) L 03/19/16 06:26 Potassium 3.9 mmol/L (3.6-5.0) 03/19/16 06:26 Chloride 93.8 mmol/L (98-107) L 03/19/16 06:26 Carbon Dioxide 21 mmol/L (22-30) L 03/19/16 06:26 Anion Gap 22 mmol/L 03/19/16 06:26 BUN 8 mg/dL (9-20) L 03/19/16 06:26 Creatinine 0.6 mg/dL (0.8-1.5) L 03/19/16 06:26 Estimated GFR > 60 ml/min 03/19/16 06:26 BUN/Creatinine Ratio 13.33 % 03/19/16 06:26 Glucose 161 mg/dL (75-100) H 03/19/16 06:26 POC Glucose 133 (70-105) H 03/20/16 12:05 Calcium 8.9 mg/dL (8.4-10.2) 03/19/16 06:26 Total Creatine Kinase 266 units/L (55-170) H 03/20/16 00:11 CK-MB (CK-2) 28.8 ng/mL (0.0-4.0) H 03/20/16 00:11 CK-MB (CK-2) Rel Index 10.8 (0-4) H 03/20/16 00:11 Troponin T 0.195 ng/mL (0.00-0.029) H* D 03/19/16 17:49 Triglycerides 214 mg/dL (2-149) H 03/19/16 06:26 Cholesterol 225 mg/dL (50-199) H 03/19/16 06:26 LDL Cholesterol Direct 129 mg/dL (50-130) 03/19/16 06:26 HDL Cholesterol 54 mg/dL (40-59) 03/19/16 06:26 Cholesterol/HDL Ratio 4.16 % 03/19/16 06:26
--- NOTE | 2016-03-20 14:19 | Echocardiography Report ---
Transthoracic Echocardiogram BP: 140/88 Conclusions *The left ventricular chamber size is normal. *The estimated ejection fraction is 55-60%. *The basal inferolateral, basal inferior, mid inferolateral, and mid inferior wall segments are hypokinetic. *Abnormal left ventricular diastolic filling is observed, consistent with impaired relaxation. *Definity was used to optimize study. Findings Procedure Info: The study quality is fair. Left Ventricle: The left ventricular chamber size is normal. Global left ventricular wall motion and contractility are within normal limits. Global left ventricular systolic function is normal. The estimated ejection fraction is 55-60%. Abnormal left ventricular diastolic filling is observed, consistent with impaired relaxation. The basal inferolateral, basal inferior, mid inferolateral, and mid inferior wall segments are hypokinetic. Left Atrium: The left atrium is normal in size with no visual thrombus identified. Right Ventricle: The right ventricular cavity size is normal. The right ventricular global systolic function is normal. Right Atrium: The right atrium appears normal. The interatrial septum appears normal. Aortic Valve: The aortic valve structure is normal. There is no evidence of aortic regurgitation. There is no evidence of aortic stenosis. Mitral Valve: The mitral valve leaflets appear normal. There is no evidence of mitral regurgitation. There is no evidence of mitral stenosis. Tricuspid Valve: The tricuspid valve leaflets are normal. There is no evidence of tricuspid valve regurgitation. There is no tricuspid stenosis. Pulmonic Valve: The pulmonic valve appears normal. There is no evidence of pulmonic regurgitation. There is no pulmonic stenosis. Pericardium: There is no pericardial effusion. Aorta: There is no dilatation of the ascending aorta. There is no dilatation of the aortic arch. There is no dilatation of the descending thoracic aorta. There is no dilatation of the aortic root. Venous: The inferior vena cava appears normal in size. Contrast: Definity was used to optimize study. Intravenous contrast was used to enhance endocardial border definition. Measurements Chambers MM Name Value Normal Range Ao root diameter (MM) 3.4 cm (2 - 3.7) AV cusp separation (MM) 2 cm (1.5 - 2.6) Chambers 2D Name Value Normal Range IVSd (2D) 1.62 cm (0.6 - 1.1) LVPWd (2D) 1.25 cm (0.6 - 1.1) IVS:LVPW ratio (2D) 1.3 ratio - LVIDd (2D) 4.7 cm (3.7 - 5.6) LVIDs (2D) 3.52 cm (2 - 3.8) LV FS (Teichholz) (2D) 25.1 % - LV FS (cube) (2D) 25.1 % - EF Teichholz (2D) 49.4 % - LA dimension (AP) 2D 4.1 cm (1.9 - 4) Volumes/Mass Name Value Normal Range LA ESV SP 4CH (MOD) 57 ml - LA ESV SP 2CH (MOD) 62 ml - LA ESV BP (MOD) 62 ml - LA ESV BP (MOD) index 27.9 ml/m2 - LV EDV SP 4CH (MOD) 98 ml - LV ESV SP 4CH (MOD) 44 ml - EF SP 4CH (MOD) 55 % - LV EDV SP 2CH (MOD) 88 ml - LV ESV SP 2CH (MOD) 37 ml - EF SP 2CH (MOD) 58 % - LV EDV BP 95 ml - LV ESV BP 42 ml - BP EF (MOD) 56 % - Diastolic/Systolic Function Name Value Normal Range MV E-wave Vmax 0.55 m/sec - MV deceleration time 165 msec - MV A-wave Vmax 0.91 m/sec - MV E:A ratio 0.6 ratio - LV septal e' Vmax 0.05 m/sec - LV lateral e' Vmax 0.13 m/sec - LV E:e' septal ratio 10.5 ratio - LV E:e' lateral ratio 4.4 ratio - Aortic Valve Name Value Normal Range AV VTI 23.7 cm - AV mean gradient 5 mmHg - LVOT diameter 2.3 cm - LVOT VTI 18.6 cm - LVOT mean gradient 3 mmHg - SV LVOT 77 ml - OSKAR (continuity VTI) 3.26 cm2 - Wallmotion BAS Not Seen BA Not Seen BAL Not Seen NORA Hypokinetic BI Hypokinetic BIS Not Seen MAS Not Seen MA Not Seen MAL Not Seen MIL Hypokinetic DC Hypokinetic MIS Not Seen Not Seen AA Not Seen AL Not Seen AI Not Seen APEX Not Seen
[2016-03-20] MEDS: HEPARIN/ 0.45% NACL-25,000 UNIT/500 ML 500 ML IV SCH (18:45)
[2016-03-20] MEDS: TRIDIL DRIP 50MG/250ML 250 ML IV SCH (18:45)
[2016-03-20] MEDS: AMBIEN PO PRN (21:14)
[2016-03-21] MEDS: TRIDIL DRIP 50MG/250ML 250 ML IV SCH (04:50)
[2016-03-21 05:00] LABS: Hematocrit 39.1 % (35.5-45.6); Hemoglobin 13.5 gm/dl (11.8-15.2)
[2016-03-21] MEDS: PLAVIX PO SCH ×2 (06:49→10:00)
[2016-03-21] MEDS: ASPIRIN PO SCH (09:02)
[2016-03-21] MEDS: VITAMIN B-1 PO SCH (09:02)
[2016-03-21] MEDS: FOLVITE PO SCH (09:02)
[2016-03-21] MEDS: PEPCID PO SCH ×2 (09:03→21:25)
[2016-03-21] MEDS ORDERED: HEPARIN/NS 5000 UNIT/500ML(CATH LAB) 1,000 ML IR ONE (10:07)
[2016-03-21] MEDS ORDERED: HEPARIN 10,000 UNITS/10 ML ONE (10:07)
[2016-03-21] MEDS: VERSED ONE ×2 (10:24→10:35)
[2016-03-21] MEDS: XYLOCAINE 2% INFILTRATI ONE ×2 (10:25→10:37)
[2016-03-21] MEDS: SUBLIMAZE ONE ×2 (10:25→10:35)
[2016-03-21] MEDS ORDERED: NITROGLYCERIN SYRINGE 3 ML ONE (10:47)
--- NOTE | 2016-03-21 11:53 | Progress Note ---
Assessment and Plan Assessment and plan: Patient is a 55-year-old man with a history of alcohol abuse (2 big pitchers of beer each night, last drink was prior to presentation), hypertension, dyslipidemia, gout and coronary artery disease status post stents who presents with left severe pressure-like constant radiating to left arm chest pains is helped by nitroglycerin that started 3-4 hours prior to presentation. admit to not taking his meds for a week, as he ran out, Counseled on improved compliance. CTA chest: No PE, f 1. Non-STEMI: IV heparin, IV nitroglycerin, aspirin statin beta benjamin, for cath today 2. Alcohol abuse: CIWA protocol, thiamine, watch for withdrawals 3. Coronary artery disease, chronic and worsening due to noncompliance 4. Hypertension related to above 5. DVT prophylaxis: On IV heparin 6. GI prophylaxis: Pepcid 7. Lung nodule vs atelectasis vs nodular scar, recommend fup imaging in 6 months to ensure resolution Critical care time: 35 minutes History Interval history: Did not have chest pain overnight, no complaints denies withdrawal symptoms Hospitalist Physical - Physical exam Narrative exam: General: Patient appears well in no distress HEENT: MMM, EOMI cardiac: S1-S2 heard lungs: clear to auscultation, abdomen: soft, nontender, nondistended bowel sounds positive extremities: no edema clubbing or cyanosis Skin: no rash or lesion Neuro: no focal deficit Psych: appropriate behavior and mood, cognition intact - Constitutional Vitals: Temp Pulse Resp BP Pulse Ox 98.2 F 75 23 121/71 99 03/21/16 07:46 03/21/16 09:12 03/21/16 09:12 03/21/16 09:12 03/21/16 09:12 General appearance: Present: no acute distress Results - Labs CBC & Chem 7: 03/21/16 04:01 03/19/16 06:26 Labs: Laboratory Last Values WBC 5.2 K/mm3 (4.5-11.0) 03/19/16 06:26 RBC 4.71 M/mm3 (3.65-5.03) 03/19/16 06:26 Hgb 13.5 gm/dl (11.8-15.2) 03/21/16 04:01 Hct 39.1 % (35.5-45.6) 03/21/16 04:01 MCV 95 fl (84-94) H 03/19/16 06:26 MCH 32 pg (28-32) 03/19/16 06:26 MCHC 34 % (32-34) 03/19/16 06:26 RDW 13.1 % (13.2-15.2) L 03/19/16 06:26 Plt Count 280 K/mm3 (140-440) 03/21/16 04:01 Lymph % (Auto) 26.9 % (13.4-35.0) 03/19/16 06:26 [place] % (Auto) 5.8 % (0.0-7.3) 03/19/16 06:26 Eos % (Auto) 2.7 % (0.0-4.3) 03/19/16 06:26 Baso % (Auto) 0.8 % (0.0-1.8) 03/19/16 06:26 Lymph # 1.4 K/mm3 (1.2-5.4) 03/19/16 06:26 Chambers # 0.3 K/mm3 (0.0-0.8) 03/19/16 06:26 Eos # 0.1 K/mm3 (0.0-0.4) 03/19/16 06:26 Baso # 0.0 K/mm3 (0.0-0.1) 03/19/16 06:26 Seg Neutrophils % 63.8 % (40.0-70.0) 03/19/16 06:26 Seg Neutrophils # 3.3 K/mm3 (1.8-7.7) 03/19/16 06:26 PT 12.3 Sec. (12.2-14.9) 03/19/16 07:45 INR 0.92 (0.87-1.13) 03/19/16 07:45 APTT 28.1 Sec. (24.2-36.6) 03/19/16 07:45 D-Dimer 421.46 ng/mlDDU (0-234) H 03/19/16 07:45 Heparin Anti-Xa Level < 0.10 U.I./ml (0.3-0.7) L 03/21/16 00:18 Sodium 133 mmol/L (137-145) L 03/19/16 06:26 Potassium 3.9 mmol/L (3.6-5.0) 03/19/16 06:26 Chloride 93.8 mmol/L (98-107) L 03/19/16 06:26 Carbon Dioxide 21 mmol/L (22-30) L 03/19/16 06:26 Anion Gap 22 mmol/L 03/19/16 06:26 BUN 8 mg/dL (9-20) L 03/19/16 06:26 Creatinine 0.6 mg/dL (0.8-1.5) L 03/19/16 06:26 Estimated GFR > 60 ml/min 03/19/16 06:26 BUN/Creatinine Ratio 13.33 % 03/19/16 06:26 Glucose 161 mg/dL (75-100) H 03/19/16 06:26 POC Glucose 121 (70-105) H 03/21/16 08:56 Calcium 8.9 mg/dL (8.4-10.2) 03/19/16 06:26 Total Creatine Kinase 266 units/L (55-170) H 03/20/16 00:11 CK-MB (CK-2) 28.8 ng/mL (0.0-4.0) H 03/20/16 00:11 CK-MB (CK-2) Rel Index 10.8 (0-4) H 03/20/16 00:11 Troponin T 0.195 ng/mL (0.00-0.029) H* D 03/19/16 17:49 Triglycerides 214 mg/dL (2-149) H 03/19/16 06:26 Cholesterol 225 mg/dL (50-199) H 03/19/16 06:26 LDL Cholesterol Direct 129 mg/dL (50-130) 03/19/16 06:26 HDL Cholesterol 54 mg/dL (40-59) 03/19/16 06:26 Cholesterol/HDL Ratio 4.16 % 03/19/16 06:26
--- NOTE | 2016-03-21 11:58 | Progress Note ---
Assessment and Plan - Patient Problems (1) NSTEMI (non-ST elevated myocardial infarction) Current Visit: Yes Status: Acute Plan to address problem: Recommend: Will review further revascularization strategies with patient. Subjective Date of service: 03/21/16 Principal diagnosis: NSTEMI Interval history: Cardiac cath: Patent prior LAD and Circ stents. [place], 80% mid LAD and 100% prox RCA. Ad hoc PCI of the RCA unsuccessful. Recommend: Will review further revascularization strategies with patient. Objective Vital Signs Temp Pulse Pulse Pulse Resp BP Pulse Ox 03/21/16 09:12 75 23 121/71 99 03/21/16 09:00 71 20 121/71 99 03/21/16 08:30 69 19 129/73 99 03/21/16 08:02 69 21 129/73 99 03/21/16 08:00 68 69 21 129/73 99 03/21/16 07:48 68 18 138/82 99 03/21/16 07:46 98.2 F 03/21/16 07:42 100 03/21/16 07:30 76 18 138/82 100 03/21/16 07:00 75 17 123/72 100 03/21/16 06:30 123/72 100 03/21/16 06:00 70 24 123/72 100 03/21/16 05:30 72 15 129/90 100 03/21/16 05:00 75 21 120/81 100 03/21/16 04:30 64 16 129/90 100 03/21/16 04:00 98.1 F 74 83 87 12 129/90 100 03/21/16 03:30 66 21 133/73 100 03/21/16 03:00 74 19 148/86 100 03/21/16 02:30 71 21 148/86 100 03/21/16 02:00 77 19 141/82 100 03/21/16 01:30 79 18 141/82 100 03/21/16 01:00 76 16 141/82 100 03/21/16 00:30 76 18 134/77 100 03/21/16 00:00 79 18 134/77 100 03/20/16 23:48 77 143/86 03/20/16 23:30 80 13 139/84 100 03/20/16 23:00 19 138/72 99 03/20/16 22:30 79 18 133/82 100 03/20/16 22:00 83 19 150/80 100 03/20/16 21:30 76 18 129/62 98 03/20/16 21:00 88 27 H 145/76 99 03/20/16 20:30 90 17 131/68 98 03/20/16 20:00 98.3 F 90 23 135/71 98 03/20/16 19:32 84 20 159/90 98 03/20/16 19:30 88 19 159/90 98 03/20/16 19:26 89 20 151/82 97 03/20/16 19:22 87 19 149/80 98 03/20/16 19:20 87 20 151/82 98 03/20/16 19:16 86 20 151/82 98 03/20/16 19:10 88 19 149/84 98 03/20/16 19:06 85 22 149/84 99 03/20/16 19:00 86 25 H 138/68 99 03/20/16 18:56 83 20 138/68 98 03/20/16 18:50 84 24 138/68 98 03/20/16 18:46 85 21 138/68 98 03/20/16 18:40 88 22 129/72 98 03/20/16 18:36 85 24 129/72 98 03/20/16 18:30 89 22 129/72 98 03/20/16 18:26 91 H 17 143/64 99 03/20/16 18:20 94 H 20 143/64 99 03/20/16 18:15 95 H 19 143/64 99 03/20/16 18:10 101 H 17 99 03/20/16 18:06 93 H 22 100 03/20/16 18:00 89 17 149/85 98 03/20/16 17:56 90 26 H 149/85 99 03/20/16 17:50 86 19 149/85 99 03/20/16 17:45 96 H 22 149/85 97 03/20/16 17:41 91 H 21 155/97 98 03/20/16 17:35 93 H 21 155/97 99 03/20/16 17:31 92 H 25 H 155/97 99 03/20/16 17:25 82 13 155/97 99 03/20/16 17:21 87 17 155/97 98 03/20/16 17:15 84 24 155/97 98 03/20/16 17:11 84 17 144/76 98 03/20/16 17:05 89 14 144/76 98 03/20/16 17:00 79 22 144/76 98 03/20/16 16:55 84 14 142/78 98 03/20/16 16:51 86 13 142/78 98 03/20/16 16:45 86 12 142/78 99 03/20/16 16:41 80 17 144/76 99 03/20/16 16:35 85 20 144/76 99 03/20/16 16:30 80 20 144/76 99 03/20/16 16:25 90 16 136/78 99 03/20/16 16:21 80 20 136/78 99 03/20/16 16:15 82 20 136/78 99 03/20/16 16:11 87 22 133/79 99 03/20/16 16:05 84 19 133/79 98 03/20/16 16:00 80 20 133/79 98 03/20/16 15:55 79 19 136/79 98 03/20/16 15:51 76 18 136/79 98 03/20/16 15:45 85 15 136/79 99 03/20/16 15:41 73 19 135/69 98 03/20/16 15:35 72 18 135/69 98 03/20/16 15:30 75 19 135/69 98 03/20/16 15:25 77 18 134/66 98 03/20/16 15:00 79 21 149/76 98 03/20/16 14:30 81 22 135/65 97 03/20/16 14:00 86 27 H 162/82 100 03/20/16 13:31 93 H 19 171/84 100 03/20/16 13:00 86 21 141/76 99 03/20/16 12:30 92 H 14 133/79 99 03/20/16 12:01 85 16 144/86 98 03/20/16 12:00 97.9 F - Physical Examination General: No Apparent Distress HEENT: Positive: PERRL Neck: Positive: neck supple Cardiac: Positive: Reg Rate and Rhythm Lungs: Positive: Decreased Breath Sounds Neuro: Positive: Grossly Intact Abdomen: Positive: Soft Skin: Positive: Clear Extremities: Absent: edema - Labs and Meds CBC 03/21/16 Range/Units 04:01 Hgb 13.5 (11.8-15.2) gm/dl Hct 39.1 (35.5-45.6) % Plt Count 280 (140-440) K/mm3 - Imaging and Cardiology EKG: image reviewed
[2016-03-21] MEDS ORDERED: NACL 0.9% 1000 ML 1,000 ML IV SCH (12:00)
--- NOTE | 2016-03-21 12:04 | Cardiac Catherization Report ---
PROCEDURE PERFORMED: Cardiac catheterization and coronary angioplasty. REASON FOR PROCEDURE: The patient is a 55-year-old man with 2-vessel coronary artery disease with prior coronary stents in the proximal to mid LAD and mid obtuse marginal branch of the circumflex artery, done 5 to 6 years ago. He presents now with chest pain and evidence of a non-ST elevation myocardial infarction. Cardiac catheterization was recommended. DESCRIPTION OF PROCEDURE: The patient was prepped and draped in a sterile fashion after informed consent. The right femoral artery was entered using the Seldinger technique followed by placement of a 6-Gibraltarian sheath. #4 right and left Tanmay catheters were used for right and left coronary angiography. The angiograms were reviewed. Coronary angiography: The left main coronary artery contained mild luminal irregularities. The left anterior descending artery contained mild irregularities in its proximal segment. A stent was visible in the proximal to mid LAD. The stented segment was widely patent. Following the stent, we noted a focal, 75% to 80% stenosis of the mid LAD. This was followed by diffuse mild atherosclerosis of the distal segments of the LAD. The circumflex artery was notable for a stent in the mid obtuse marginal branch. The stented segment again was widely patent. Otherwise, mild diffuse atherosclerosis of the circumflex system was noted. The right coronary artery was dominant. This vessel was completely occluded in its proximal segment. There was a filling defect suggestive of an intraluminal thrombus. We did note left to right collateralization of the distal right coronary system including a moderate-sized posterior descending branch and a moderate sized posterolateral branch. Coronary angioplasty: Ad Hoc Coronary angioplasty of the right coronary system was recommended. We selected #1 right Amplatz guiding catheter and advanced to the right coronary ostium. A 0.014 inch [employer] 50 guidewire was then transitioned through the occluded vessel, into the distal vessel. Following wire placement, balloon inflation in the proximal mid vessel did not restore distal flow. We then exchanged over the wire balloon, and after placement of the balloon distally, injection of contrast through the balloon lumen revealed diffusely, severely diseased vessel through the proximal, mid, and distal AV groove segments with an apparent chronic total occlusion right before the posterior descending branch. The angioplasty procedure was then abandoned, the wires and the catheters were removed, post-intervention angiograms revealed no change in the complete occlusion of the vessel in its proximal segment. The patient was returned to the postprocedure unit in stable condition. CONCLUSION: 1. Multivessel coronary artery disease. 2. Patent prior coronary stents of the proximal LAD and mid circumflex artery. 3. Severe de nani disease of the mid LAD, with a focal 80% stenosis. 4. Severe de nani disease of the right coronary artery with completely occluded vessel in its proximal segment, with distal collateralization from the left coronary system. 5. Unsuccessful ad hoc angioplasty of the right coronary artery revealed extensive vessel occlusion from the proximal segment to the origin of the posterior descending branch, apparent chronic total occlusion. RECOMMENDATIONS: 1. Options for revascularization include angioplasty and stenting of the mid left anterior descending, followed by medical therapy for chronic right coronary occlusion with left collaterals. 2. Second option would be more complete revascularization with 2-vessel coronary artery bypass to the right coronary and left anterior descending arteries. 3. Echocardiogram will be done for left ventricular function and valvular function assessment. JOB# [id number] MELIZA/MYLES
[2016-03-21] MEDS: LOPRESSOR PO SCH (13:00)
--- NOTE | 2016-03-21 13:23 | Progress Note ---
Assessment and Plan Imp: 1. NSTEMI 2. CAD/ICMP 3. Alcohol abuse 4. Pulm nodules Rec: 1. Wean off NTG 2. F/u CT chest 6 months as outpatient 3. ? CABG 4. CIWA 5. Transfer out of ICU once off NTG and when okay with cardiology Plan of care reviewed w/ patient, he understands/agrees Subjective Date of service: 03/21/16 Principal diagnosis: NSTEMI Interval history: Had LHC. No chest pain on NTG drip. No SOB, wheezing, cough. Active Medications Acetaminophen (Tylenol) 650 mg PO Q6H PRN PRN Reason: Non Cardiac Pain or Temp>100.5 Aspirin (Aspirin) 325 mg PO QDAY [facility] Last Admin: 03/21/16 09:02 Dose: 325 mg Atorvastatin Calcium (Lipitor) 40 mg PO QHS [facility] Last Admin: 03/20/16 21:14 Dose: 40 mg Famotidine (Pepcid) 20 mg PO BID [facility] Last Admin: 03/21/16 09:03 Dose: 20 mg Folic Acid (Folvite) 1 mg PO QDAY [facility] Last Admin: 03/21/16 09:02 Dose: 1 mg Haloperidol Lactate (Haldol) 5 mg IV Q1H PRN PRN Reason: Unrespon. to mult. doses BZD's Nitroglycerin/Dextrose (Tridil Drip 50mg/250ml) 250 mls @ 3 mls/hr IV TITR CANDICE ; 10 MCG/MIN PRN Reason: Protocol Last Admin: 03/21/16 04:50 Dose: 9 mls/hr Lorazepam (Ativan) 2 mg IV Q1H PRN PRN Reason: CIWA-Ar 8-15 Lorazepam (Ativan) 4 mg IV Q1H PRN PRN Reason: CIWA-Ar 16-25 Metoprolol Tartrate (Lopressor) 25 mg PO Q12H [facility] Last Admin: 03/21/16 13:00 Dose: 25 mg Thiamine HCl (Vitamin B-1) 100 mg PO QDAY [facility] Last Admin: 03/21/16 09:02 Dose: 100 mg Zolpidem Tartrate (Ambien) 5 mg PO QHS PRN PRN Reason: Sleep Last Admin: 03/20/16 21:14 Dose: 5 mg Objective Vital Signs - 12hr 03/21/16 03/21/16 03/21/16 01:30 02:00 02:30 Temperature Pulse Rate 79 77 71 Pulse Rate [ From Monitor] Pulse Rate [ Right Radial] Respiratory 18 19 21 Rate Blood Pressure 141/82 141/82 148/86 O2 Sat by Pulse 100 100 100 Oximetry 03/21/16 03/21/16 03/21/16 03:00 03:30 04:00 Temperature 98.1 F Pulse Rate 74 66 74 Pulse Rate [ 83 From Monitor] Pulse Rate [ 87 Right Radial] Respiratory 19 21 12 Rate Blood Pressure 148/86 133/73 129/90 O2 Sat by Pulse 100 100 100 Oximetry 03/21/16 03/21/16 03/21/16 04:30 05:00 05:30 Temperature Pulse Rate 64 75 72 Pulse Rate [ From Monitor] Pulse Rate [ Right Radial] Respiratory 16 21 15 Rate Blood Pressure 129/90 120/81 129/90 O2 Sat by Pulse 100 100 100 Oximetry 03/21/16 03/21/16 03/21/16 06:00 06:30 07:00 Temperature Pulse Rate 70 75 Pulse Rate [ From Monitor] Pulse Rate [ Right Radial] Respiratory 24 17 Rate Blood Pressure 123/72 123/72 123/72 O2 Sat by Pulse 100 100 100 Oximetry 03/21/16 03/21/16 03/21/16 07:30 07:42 07:46 Temperature 98.2 F Pulse Rate 76 Pulse Rate [ From Monitor] Pulse Rate [ Right Radial] Respiratory 18 Rate Blood Pressure 138/82 O2 Sat by Pulse 100 100 Oximetry 03/21/16 03/21/16 03/21/16 07:48 08:00 08:02 Temperature Pulse Rate 68 68 69 Pulse Rate [ 69 From Monitor] Pulse Rate [ Right Radial] Respiratory 18 21 21 Rate Blood Pressure 138/82 129/73 129/73 O2 Sat by Pulse 99 99 99 Oximetry 03/21/16 03/21/16 03/21/16 08:30 09:00 09:04 Temperature Pulse Rate 69 71 84 Pulse Rate [ From Monitor] Pulse Rate [ Right Radial] Respiratory 19 20 16 Rate Blood Pressure 129/73 121/71 121/71 O2 Sat by Pulse 99 99 100 Oximetry 03/21/16 03/21/16 03/21/16 09:12 11:56 12:00 Temperature Pulse Rate 75 71 74 Pulse Rate [ 74 From Monitor] Pulse Rate [ Right Radial] Respiratory 23 12 9 L Rate Blood Pressure 121/71 O2 Sat by Pulse 99 99 97 Oximetry 03/21/16 03/21/16 12:09 13:00 Temperature 98.1 F Pulse Rate 81 Pulse Rate [ From Monitor] Pulse Rate [ Right Radial] Respiratory Rate Blood Pressure 124/78 O2 Sat by Pulse Oximetry Constitutional: no acute distress, alert Eyes: non-icteric ENT: oropharynx moist Neck: supple Effort: normal Ascultation: Bilateral: clear Cardiovascular: regular rate and rhythm (no mrg) Gastrointestinal: normoactive bowel sounds, soft, non-tender, non-distended Integumentary: normal Extremities: no cyanosis, no edema, pink and warm Neurologic: normal mental status, non-focal exam, pupils equal and round Psychiatric: mood appropriate, affect normal CBC and BMP: 03/21/16 04:01 03/19/16 06:26 ABG, PT/INR, D-dimer: PT/INR, D-dimer PT 12.3 Sec. (12.2-14.9) 03/19/16 07:45 INR 0.92 (0.87-1.13) 03/19/16 07:45 D-Dimer 421.46 ng/mlDDU (0-234) H 03/19/16 07:45 Abnormal lab findings: Abnormal Labs 03/19/16 03/19/16 03/20/16 17:49 17:49 00:11 Heparin Anti-Xa Level < 0.10 L POC Glucose Total Creatine Kinase 180 H 266 H CK-MB (CK-2) 19.8 H 28.8 H CK-MB (CK-2) Rel Index 11.0 H 10.8 H Troponin T 0.195 H* D 03/20/16 03/20/16 03/20/16 07:57 12:05 13:22 Heparin Anti-Xa Level 0.21 L POC Glucose 144 H 133 H Total Creatine Kinase CK-MB (CK-2) CK-MB (CK-2) Rel Index Troponin T 03/20/16 03/20/16 03/21/16 16:28 23:41 00:18 Heparin Anti-Xa Level < 0.10 L POC Glucose 150 H 116 H Total Creatine Kinase CK-MB (CK-2) CK-MB (CK-2) Rel Index Troponin T 03/21/16 03/21/16 08:56 12:00 Heparin Anti-Xa Level POC Glucose 121 H 127 H Total Creatine Kinase CK-MB (CK-2) CK-MB (CK-2) Rel Index Troponin T Chest x-ray: report reviewed, image reviewed CT scan - chest: report reviewed, image reviewed
[2016-03-21] MEDS: NACL 0.9% 500 ML 500 ML IV SCH (23:15)
[2016-03-22] MEDS: LOPRESSOR PO SCH ×2 (03:23→15:09)
[2016-03-22] MEDS: TRIDIL DRIP 50MG/250ML 250 ML IV SCH (04:30)
[2016-03-22] MEDS: FOLVITE PO SCH (09:00)
[2016-03-22] MEDS: VITAMIN B-1 PO SCH (09:17)
[2016-03-22] MEDS: PEPCID PO SCH ×2 (09:17→21:04)
[2016-03-22] MEDS: ASPIRIN PO SCH (09:17)
--- NOTE | 2016-03-22 11:36 | Progress Note ---
Assessment and Plan Assessment and plan: Patient is a 55-year-old man with a history of alcohol abuse (2 big pitchers of beer each night, last drink was prior to presentation), hypertension, dyslipidemia, gout and coronary artery disease status post stents who presents with left severe pressure-like constant radiating to left arm chest pains is helped by nitroglycerin that started 3-4 hours prior to presentation. admit to not taking his meds for a week, as he ran out, Counseled on improved compliance. CTA chest: No PE, f 1. Non-STEMI: IV heparin, IV nitroglycerin, aspirin statin beta benjamin, sp cath 03/21/16 has lesions not ammenable to stenting, awaiting transfer to [place] for open heart surgery wean of NTG ggt when okayed by cardiology, fup with cardiology for further management 2. Alcohol abuse: CIWA protocol, thiamine, watch for withdrawals 3. Coronary artery disease, chronic and worsening due to noncompliance 4. Hypertension related to above 5. DVT prophylaxis: On IV heparin 6. GI prophylaxis: Pepcid 7. Lung nodule vs atelectasis vs nodular scar, recommend fup imaging in 6 months to ensure resolution Critical care time: 35 minutes History Interval history: Did not have chest pain overnight, no complaints denies withdrawal symptoms Hospitalist Physical - Physical exam Narrative exam: General: Patient appears well in no distress HEENT: MMM, EOMI cardiac: S1-S2 heard lungs: clear to auscultation, abdomen: soft, nontender, nondistended bowel sounds positive extremities: no edema clubbing or cyanosis Skin: no rash or lesion Neuro: no focal deficit Psych: appropriate behavior and mood, cognition intact - Constitutional Vitals: Temp Pulse Resp BP Pulse Ox 98.4 F 65 16 129/84 96 03/22/16 03:30 03/22/16 11:00 03/22/16 11:00 03/22/16 11:00 03/22/16 11:00 General appearance: Present: no acute distress Results - Labs CBC & Chem 7: 03/21/16 04:01 03/19/16 06:26 Labs: Laboratory Last Values WBC 5.2 K/mm3 (4.5-11.0) 03/19/16 06:26 RBC 4.71 M/mm3 (3.65-5.03) 03/19/16 06:26 Hgb 13.5 gm/dl (11.8-15.2) 03/21/16 04:01 Hct 39.1 % (35.5-45.6) 03/21/16 04:01 MCV 95 fl (84-94) H 03/19/16 06:26 MCH 32 pg (28-32) 03/19/16 06:26 MCHC 34 % (32-34) 03/19/16 06:26 RDW 13.1 % (13.2-15.2) L 03/19/16 06:26 Plt Count 280 K/mm3 (140-440) 03/21/16 04:01 Lymph % (Auto) 26.9 % (13.4-35.0) 03/19/16 06:26 [place] % (Auto) 5.8 % (0.0-7.3) 03/19/16 06:26 Eos % (Auto) 2.7 % (0.0-4.3) 03/19/16 06:26 Baso % (Auto) 0.8 % (0.0-1.8) 03/19/16 06:26 Lymph # 1.4 K/mm3 (1.2-5.4) 03/19/16 06:26 [place] # 0.3 K/mm3 (0.0-0.8) 03/19/16 06:26 Eos # 0.1 K/mm3 (0.0-0.4) 03/19/16 06:26 Baso # 0.0 K/mm3 (0.0-0.1) 03/19/16 06:26 Seg Neutrophils % 63.8 % (40.0-70.0) 03/19/16 06:26 Seg Neutrophils # 3.3 K/mm3 (1.8-7.7) 03/19/16 06:26 PT 12.3 Sec. (12.2-14.9) 03/19/16 07:45 INR 0.92 (0.87-1.13) 03/19/16 07:45 APTT 28.1 Sec. (24.2-36.6) 03/19/16 07:45 Activated Clotting Time 147 (74-137) H 03/21/16 10:48 D-Dimer 421.46 ng/mlDDU (0-234) H 03/19/16 07:45 Heparin Anti-Xa Level 0.21 U.I./ml (0.3-0.7) L 03/21/16 13:24 Sodium 133 mmol/L (137-145) L 03/19/16 06:26 Potassium 3.9 mmol/L (3.6-5.0) 03/19/16 06:26 Chloride 93.8 mmol/L (98-107) L 03/19/16 06:26 Carbon Dioxide 21 mmol/L (22-30) L 03/19/16 06:26 Anion Gap 22 mmol/L 03/19/16 06:26 BUN 8 mg/dL (9-20) L 03/19/16 06:26 Creatinine 0.6 mg/dL (0.8-1.5) L 03/19/16 06:26 Estimated GFR > 60 ml/min 03/19/16 06:26 BUN/Creatinine Ratio 13.33 % 03/19/16 06:26 Glucose 161 mg/dL (75-100) H 03/19/16 06:26 POC Glucose 126 (70-105) H 03/22/16 04:36 Calcium 8.9 mg/dL (8.4-10.2) 03/19/16 06:26 Total Creatine Kinase 266 units/L (55-170) H 03/20/16 00:11 CK-MB (CK-2) 28.8 ng/mL (0.0-4.0) H 03/20/16 00:11 CK-MB (CK-2) Rel Index 10.8 (0-4) H 03/20/16 00:11 Troponin T 0.195 ng/mL (0.00-0.029) H* D 03/19/16 17:49 Triglycerides 214 mg/dL (2-149) H 03/19/16 06:26 Cholesterol 225 mg/dL (50-199) H 03/19/16 06:26 LDL Cholesterol Direct 129 mg/dL (50-130) 03/19/16 06:26 HDL Cholesterol 54 mg/dL (40-59) 03/19/16 06:26 Cholesterol/HDL Ratio 4.16 % 03/19/16 06:26
--- NOTE | 2016-03-22 13:49 | Progress Note ---
Assessment and Plan - Patient Problems (1) NSTEMI (non-ST elevated myocardial infarction) Current Visit: Yes Status: Acute Plan to address problem: Patient has 2 vessel disease with complete occlusion of the right coronary artery, not amenable to percutaneous coronary intervention. In addition, there is a focal, 80% stenosis of the proximal to mid LAD. He is recommended for surgical revascularization. Transfer to [place] for bypass surgery. Subjective Principal diagnosis: NSTEMI Interval history: Patient is comfortable, in no acute distress. No further chest pain. Objective Vital Signs Temp Pulse Pulse Pulse Resp Resp BP 03/22/16 11:00 65 16 129/84 03/22/16 10:30 65 14 140/76 03/22/16 10:16 66 18 155/77 03/22/16 10:00 71 20 127/69 03/22/16 09:30 69 18 127/69 03/22/16 09:00 67 18 127/69 03/22/16 08:53 03/22/16 08:30 69 21 136/80 03/22/16 08:00 72 19 136/80 03/22/16 07:30 65 13 143/81 03/22/16 07:00 66 18 143/81 03/22/16 06:30 61 17 145/86 03/22/16 06:10 66 19 145/86 03/22/16 06:05 69 66 03/22/16 06:00 69 18 125/71 03/22/16 05:30 61 19 125/71 03/22/16 05:00 65 18 141/87 03/22/16 04:40 61 17 141/87 03/22/16 04:32 74 13 141/87 03/22/16 04:30 63 17 141/87 03/22/16 04:20 65 18 141/87 03/22/16 04:04 70 18 141/87 03/22/16 04:00 72 19 141/87 03/22/16 03:37 18 03/22/16 03:30 98.4 F 71 18 119/54 03/22/16 03:23 77 120/62 03/22/16 03:00 73 18 119/54 03/22/16 02:42 74 19 119/54 03/22/16 02:40 75 18 119/54 03/22/16 02:35 03/22/16 02:30 80 20 119/54 03/22/16 02:00 73 14 143/79 03/22/16 01:56 72 19 143/79 03/22/16 01:42 69 17 143/79 03/22/16 01:30 69 14 143/79 03/22/16 01:20 76 18 143/79 03/22/16 01:10 18 03/22/16 01:00 74 19 143/79 03/22/16 00:30 71 20 139/76 03/22/16 00:28 98.4 F 19 143/79 03/22/16 00:00 73 19 139/76 03/21/16 23:46 77 14 135/72 03/21/16 23:36 74 23 135/72 03/21/16 23:30 83 12 127/81 03/21/16 23:15 17 03/21/16 23:00 74 13 127/81 03/21/16 22:30 72 16 127/81 03/21/16 22:00 68 19 127/81 03/21/16 21:33 76 03/21/16 21:30 78 11 L 139/71 03/21/16 21:24 75 16 139/71 03/21/16 21:00 76 17 139/71 03/21/16 20:30 78 16 137/79 03/21/16 20:00 71 21 137/79 03/21/16 19:37 97.9 F 03/21/16 19:30 71 22 18 133/79 03/21/16 19:24 78 17 133/79 03/21/16 19:00 68 21 120/62 03/21/16 18:38 64 21 120/62 03/21/16 18:30 66 20 120/62 03/21/16 18:00 71 20 120/62 03/21/16 17:30 70 13 131/76 03/21/16 17:00 81 12 131/76 03/21/16 16:30 83 13 125/71 03/21/16 16:00 97.9 F 71 71 18 125/71 03/21/16 15:30 78 13 130/70 03/21/16 15:00 74 22 117/63 03/21/16 14:30 84 14 117/63 03/21/16 14:06 76 18 117/63 03/21/16 14:00 76 76 18 117/63 Pulse Ox 03/22/16 11:00 96 03/22/16 10:30 97 03/22/16 10:16 97 03/22/16 10:00 96 03/22/16 09:30 98 03/22/16 09:00 97 03/22/16 08:53 96 03/22/16 08:30 97 03/22/16 08:00 97 03/22/16 07:30 98 03/22/16 07:00 96 03/22/16 06:30 99 03/22/16 06:10 98 03/22/16 06:05 03/22/16 06:00 96 03/22/16 05:30 98 03/22/16 05:00 97 03/22/16 04:40 95 03/22/16 04:32 96 03/22/16 04:30 96 03/22/16 04:20 94 03/22/16 04:04 95 03/22/16 04:00 94 03/22/16 03:37 98 03/22/16 03:30 96 03/22/16 03:23 03/22/16 03:00 96 03/22/16 02:42 96 03/22/16 02:40 95 03/22/16 02:35 98 03/22/16 02:30 94 03/22/16 02:00 95 03/22/16 01:56 95 03/22/16 01:42 95 03/22/16 01:30 95 03/22/16 01:20 95 03/22/16 01:10 03/22/16 01:00 96 03/22/16 00:30 96 03/22/16 00:28 96 03/22/16 00:00 97 03/21/16 23:46 96 03/21/16 23:36 95 03/21/16 23:30 97 03/21/16 23:15 98 03/21/16 23:00 96 03/21/16 22:30 96 03/21/16 22:00 97 03/21/16 21:33 03/21/16 21:30 98 03/21/16 21:24 98 03/21/16 21:00 96 03/21/16 20:30 97 03/21/16 20:00 95 03/21/16 19:37 03/21/16 19:30 97 03/21/16 19:24 99 03/21/16 19:00 98 03/21/16 18:38 98 03/21/16 18:30 99 03/21/16 18:00 98 03/21/16 17:30 98 03/21/16 17:00 99 03/21/16 16:30 99 03/21/16 16:00 98 03/21/16 15:30 98 03/21/16 15:00 99 03/21/16 14:30 97 03/21/16 14:06 99 03/21/16 14:00 99 - Physical Examination General: No Apparent Distress HEENT: Positive: PERRL Neck: Positive: neck supple Cardiac: Positive: Reg Rate and Rhythm Lungs: Positive: Decreased Breath Sounds Neuro: Positive: Grossly Intact Abdomen: Positive: Soft Skin: Positive: Clear Extremities: Absent: edema - Imaging and Cardiology EKG: image reviewed
[2016-03-22] MEDS ORDERED: HEPARIN 10,000 UNITS/10 ML IV ONE ×2 (13:51→14:30)
[2016-03-22] MEDS ORDERED: HEPARIN 10,000 UNITS/10 ML IV SCH (15:00)
[2016-03-22] MEDS: HEPARIN/ 0.45% NACL-25,000 UNIT/500 ML 500 ML IV SCH ×2 (15:04→21:27)
[2016-03-22] MEDS: NITRO-BID 2% TP SCH ×2 (15:06→17:07)
[2016-03-22] MEDS: COREG PO SCH ×2 (15:10→21:04)
[2016-03-22] MEDS ORDERED: ZESTRIL PO SCH (16:00)
[2016-03-22 17:31] LABS: Hematocrit 41.7 % (35.5-45.6); Hemoglobin 14.2 gm/dl (11.8-15.2)
[2016-03-22 17:41] LABS: INR 0.97 (0.87-1.13)
--- NOTE | 2016-03-22 18:56 | Progress Note ---
Assessment and Plan Imp: 1. NSTEMI 2. CAD/ICMP 3. Alcohol abuse 4. Pulm nodules Rec: 1. F/u CT chest 6 months as outpatient; discussed with patient and he expressed understanding re: need to do this 2. CIWA 3. For CABG 4. Transfer out of ICU; will sign off once transferred since no active pulm issues Plan of care reviewed w/ patient, he understands/agrees Subjective Date of service: 03/22/16 Principal diagnosis: NSTEMI Interval history: Had LHC. No chest pain off NTG drip. No SOB, wheezing, cough. Active Medications Acetaminophen (Tylenol) 650 mg PO Q6H PRN PRN Reason: Non Cardiac Pain or Temp>100.5 Last Admin: 03/22/16 08:15 Dose: 650 mg Aspirin (Aspirin) 325 mg PO QDAY [facility] Last Admin: 03/22/16 09:17 Dose: 325 mg Atorvastatin Calcium (Lipitor) 40 mg PO QHS [facility] Last Admin: 03/21/16 21:25 Dose: 40 mg Carvedilol (Coreg) 12.5 mg PO BID [facility] Last Admin: 03/22/16 15:10 Dose: 12.5 mg Famotidine (Pepcid) 20 mg PO BID [facility] Last Admin: 03/22/16 09:17 Dose: 20 mg Folic Acid (Folvite) 1 mg PO QDAY [facility] Last Admin: 03/22/16 09:00 Dose: 1 mg Haloperidol Lactate (Haldol) 5 mg IV Q1H PRN PRN Reason: Unrespon. to mult. doses BZD's Heparin Sodium/Sodium Chloride (Heparin/ 0.45% Nacl-25,000 Unit/500 Ml) 500 mls @ 20 mls/hr IV TITRATE [facility]; 1,000 UNITS/HR PRN Reason: Protocol Last Admin: 03/22/16 15:04 Dose: 20 mls/hr Lisinopril (Zestril) 10 mg PO QDAY [facility] Last Admin: 03/22/16 15:05 Dose: 10 mg Lorazepam (Ativan) 2 mg IV Q1H PRN PRN Reason: CIWA-Ar 8-15 Lorazepam (Ativan) 4 mg IV Q1H PRN PRN Reason: CIWA-Ar 16-25 Metoprolol Tartrate (Lopressor) 25 mg PO Q12H [facility] Last Admin: 03/22/16 15:09 Dose: 25 mg Nitroglycerin (Nitro-Bid 2%) 1 inch TP QIDNTG CANDICE PRN Reason: Protocol Last Admin: 03/22/16 17:07 Dose: 1 inch Thiamine HCl (Vitamin B-1) 100 mg PO QDAY [facility] Last Admin: 03/22/16 09:17 Dose: 100 mg Zolpidem Tartrate (Ambien) 5 mg PO QHS PRN PRN Reason: Sleep Last Admin: 03/20/16 21:14 Dose: 5 mg Objective Vital Signs - 12hr 03/22/16 03/22/16 03/22/16 07:00 07:30 08:00 Pulse Rate 66 65 72 Respiratory 18 13 19 Rate Blood Pressure 143/81 143/81 136/80 O2 Sat by Pulse 96 98 97 Oximetry 03/22/16 03/22/16 03/22/16 08:30 08:53 09:00 Pulse Rate 69 67 Respiratory 21 18 Rate Blood Pressure 136/80 127/69 O2 Sat by Pulse 97 96 97 Oximetry 03/22/16 03/22/16 03/22/16 09:30 10:00 10:16 Pulse Rate 69 71 66 Respiratory 18 20 18 Rate Blood Pressure 127/69 127/69 155/77 O2 Sat by Pulse 98 96 97 Oximetry 03/22/16 03/22/16 03/22/16 10:30 10:50 11:00 Pulse Rate 65 65 65 Respiratory 14 17 16 Rate Blood Pressure 140/76 140/76 129/84 O2 Sat by Pulse 97 96 96 Oximetry 03/22/16 03/22/16 03/22/16 11:12 11:30 12:00 Pulse Rate 65 68 71 Respiratory 16 16 14 Rate Blood Pressure 129/84 140/76 129/84 O2 Sat by Pulse 97 99 98 Oximetry 03/22/16 03/22/16 03/22/16 12:30 13:01 13:31 Pulse Rate 75 73 71 Respiratory 17 13 19 Rate Blood Pressure 152/83 157/90 157/90 O2 Sat by Pulse 97 98 98 Oximetry 03/22/16 03/22/16 03/22/16 14:00 14:31 15:00 Pulse Rate 71 70 65 Respiratory 14 16 21 Rate Blood Pressure 138/83 138/83 149/98 O2 Sat by Pulse 98 97 97 Oximetry 0103/22/16 03/22/16 15:05 15:06 15:09 Pulse Rate 61 Respiratory Rate Blood Pressure 149/98 149/98 149/98 O2 Sat by Pulse Oximetry 03/22/16 03/22/16 03/22/16 15:10 15:31 16:00 Pulse Rate 67 69 63 Respiratory 19 9 L Rate Blood Pressure 149/98 149/98 151/86 O2 Sat by Pulse 98 97 Oximetry 03/22/16 03/22/16 03/22/16 16:23 16:31 17:00 Pulse Rate 63 60 66 Respiratory 14 18 14 Rate Blood Pressure 151/86 151/86 142/82 O2 Sat by Pulse 97 98 98 Oximetry 03/22/16 17:07 Pulse Rate Respiratory Rate Blood Pressure 142/82 O2 Sat by Pulse Oximetry Constitutional: no acute distress, alert Eyes: non-icteric ENT: oropharynx moist Neck: supple Effort: normal Ascultation: Bilateral: clear Cardiovascular: regular rate and rhythm (no mrg) Gastrointestinal: normoactive bowel sounds, soft, non-tender, non-distended Integumentary: normal Extremities: no cyanosis, no edema, pink and warm Neurologic: normal mental status, non-focal exam, pupils equal and round Psychiatric: mood appropriate, affect normal CBC and BMP: 03/22/16 17:00 03/19/16 06:26 ABG, PT/INR, D-dimer: PT/INR, D-dimer PT 12.8 Sec. (12.2-14.9) 03/22/16 17:00 INR 0.97 (0.87-1.13) 03/22/16 17:00 D-Dimer 421.46 ng/mlDDU (0-234) H 03/19/16 07:45 Abnormal lab findings: Abnormal Labs 03/19/16 03/19/16 03/20/16 17:49 17:49 00:11 APTT Activated Clotting Time Heparin Anti-Xa Level < 0.10 L POC Glucose Total Creatine Kinase 180 H 266 H CK-MB (CK-2) 19.8 H 28.8 H CK-MB (CK-2) Rel Index 11.0 H 10.8 H Troponin T 0.195 H* D 03/20/16 03/20/16 03/20/16 07:57 12:05 13:22 APTT Activated Clotting Time Heparin Anti-Xa Level 0.21 L POC Glucose 144 H 133 H Total Creatine Kinase CK-MB (CK-2) CK-MB (CK-2) Rel Index Troponin T 03/20/16 03/20/16 03/21/16 16:28 23:41 00:18 APTT Activated Clotting Time Heparin Anti-Xa Level < 0.10 L POC Glucose 150 H 116 H Total Creatine Kinase CK-MB (CK-2) CK-MB (CK-2) Rel Index Troponin T 03/21/16 03/21/16 03/21/16 08:56 10:48 12:00 APTT Activated Clotting Time 147 H Heparin Anti-Xa Level POC Glucose 121 H 127 H Total Creatine Kinase CK-MB (CK-2) CK-MB (CK-2) Rel Index Troponin T 03/21/16 03/21/16 03/21/16 13:24 15:16 20:20 APTT Activated Clotting Time Heparin Anti-Xa Level 0.21 L POC Glucose 209 H 157 H Total Creatine Kinase CK-MB (CK-2) CK-MB (CK-2) Rel Index Troponin T 03/22/16 03/22/16 03/22/16 00:25 03:37 04:36 APTT Activated Clotting Time Heparin Anti-Xa Level POC Glucose 137 H 135 H 126 H Total Creatine Kinase CK-MB (CK-2) CK-MB (CK-2) Rel Index Troponin T 03/22/16 03/22/16 03/22/16 07:40 12:02 17:00 APTT 44.0 H Activated Clotting Time Heparin Anti-Xa Level POC Glucose 118 H 150 H Total Creatine Kinase CK-MB (CK-2) CK-MB (CK-2) Rel Index Troponin T Chest x-ray: report reviewed, image reviewed
[2016-03-22 20:36] VITALS: BP 136/70
== END 2016-03-22 23:20 | disposition short-term general hospital (02) | DRG 251 ==
LOC: ED 05:31 → CC1 12:20 → 4A 03-22 17:46
PROVIDERS: ADMIT Internal Medicine; ATTEND Internal Medicine
PROC: 4A023N7 Measurement of Cardiac Sampling and Pressure, Left Heart, Percutaneous Approach (ICD-10-PCS; principal; 2016-03-21)
PROC: 02713ZZ Dilation of Coronary Artery, Two Arteries, Percutaneous Approach (ICD-10-PCS; 2016-03-21)
PROC: B211YZZ Fluoroscopy of Multiple Coronary Arteries using Other Contrast (ICD-10-PCS; 2016-03-21)
DX: I21.4 Non-ST elevation (NSTEMI) myocardial infarction (principal); E78.5 Hyperlipidemia, unspecified; E66.9 Obesity, unspecified; F10.10 Alcohol abuse, uncomplicated; R91.1 Solitary pulmonary nodule; I10 Essential (primary) hypertension; I25.119 Atherosclerotic heart disease of native coronary artery with unspecified angina pectoris; Z95.5 Presence of coronary angioplasty implant and graft; Z87.891 Personal history of nicotine dependence; I25.2 Old myocardial infarction; Z91.19 Patient's noncompliance with other medical treatment and regimen; Z82.49 Family history of ischemic heart disease and other diseases of the circulatory system; Z68.33 Body mass index [BMI] 33.0-33.9, adult
CPT/HCPCS: 36415; 71010; 71275; 80048; 80061; 82550; 82553; 82962; 84484; 85014; 85018; 85025; 85049; 85347; 85379; 85520; 85610; 85730; 92920; 93005; 93010; 93306; 93458; 94760; 96374; A9270-GY; C1725; C1760; C1769; C1887; C1894; J1644; J2250; J3010; J7030; J7040; Q9967

== ENCOUNTER 2021-10-26 09:46 | Emergency (ER) | payer OTHER ==
[2021-10-26 11:23] LABS: Basophils # (Auto) 0.1 K/mm3 (0.0-0.1); Basophils % (Auto) 0.8 % (0.0-1.8); Eosinophils # (Auto) 0.1 K/mm3 (0.0-0.4); Eosinophils % (Auto) 1.5 % (0.0-4.3); Hematocrit 44.6 % (35.5-45.6); Hemoglobin 15.3 gm/dl (11.8-15.2); Lymphocytes # (Auto) 1.6 K/mm3 (1.2-5.4); Lymphocytes % (Auto) 20.1 % (13.4-35.0); Mean Corpuscular HGB Conc 34 % (32-34); Mean Corpuscular Volume 92 fl (84-94); Monocytes # (Auto) 0.6 K/mm3 (0.0-0.8); Monocytes % (Auto) 7.3 % (0.0-7.3); Platelet Count 341 K/mm3 (140-440); Red Blood Count 4.85 M/mm3 (3.65-5.03)
[2021-10-26 11:37] LABS: Alanine Aminotransferase 15 units/L (7-56); Albumin 3.9 g/dL (3.9-5); Blood Urea Nitrogen 12 mg/dL (9-20); Calcium 9.5 mg/dL (8.4-10.2); Hemolysis Index 7
[2021-10-26 11:38] LABS: BUN/Creatinine Ratio 17
--- NOTE | 2021-10-26 11:38 | Electrocardiograph Report ---
[facility] Test Date: 2021-10-26 Test Time: 10:38:13 Pat Name: TEJ TORRES Department: Room: Gender: M [employer]: BEN : 1960 Requested By: MICHAEL WALSH Order Number: [id number] Reading MD: Tommy Gorman Measurements Intervals [place] Rate: 93 P: 39 UT: 169 QRS: 11 QRSD: 93 T: 29 QT: 348 QTc: 434 Interpretive Statements Sinus rhythm Borderline ST depression, lateral leads No previous ECG available for comparison Electronically Signed On 10-26-2021 11:37:45 EDT by Tommy Gorman
[2021-10-26 12:11] LABS: INR 0.98 (0.87-1.13); Partial Thromboplastin Time 26.5 Sec. (24.2-36.6)
--- NOTE | 2021-10-26 14:37 | Cat Scan Report ---
CT head/brain wo con, CT cervical spine wo con INDICATION: head injury. TECHNIQUE: CT head and cervical spine without contrast. All CT scans at this location are performed u sing CT dose reduction for ALARA by means of automated exposure control. COMPARISON: None. FINDINGS: HEAD: Intracranial: Lutz-white matter differentiation is maintained. No intracranial hemorrhage. No extra a xial collection.. No hydrocephalus. No herniation. Sinuses: Paranasal sinuses and mastoid air cells are essentially clear. Orbits: Globes are intact Calvarium: No acute fracture. CERVICAL: Alignment: Normal alignment. Vertebrae: No fracture. Vertebral body heights are preserved. C1 and C2 are congruent. Atlantooccipi adalberto joint is maintained. Spondylolysis: Mild commensurate for age spondylosis. Soft tissues: No prevertebral soft tissue thickening. Additional findings: No significant additional findings. IMPRESSION: 1. No acute intracranial abnormality. 2.No cervical spine fracture. Signer Name: Dagoberto Ren MD Signed: 10/26/2021 2:32 PM Workstation Name: [employer]
[2021-10-26] MEDS ORDERED: TETANUS,DIPH,PERTUSS(ACELL) VACCINE 0.5 ML SYRINGE IM ONE (15:12)
[2021-10-26] MEDS ORDERED: INSULIN REGULAR, HUMAN 100 UNITS/1 ML IV ONE ×2 (15:13→16:22)
[2021-10-26] MEDS ORDERED: SODIUM CHLORIDE 0.9% 1000 ML 1,000 ML IV ONE (15:13)
--- NOTE | 2021-10-26 15:14 | Emergency Department Report ---
ED General Adult HPI - General Chief complaint: Head Injury Stated complaint: HEAD INJURY PUI?: No Time Seen by Provider: 10/26/21 15:02 Source: patient Mode of arrival: Ambulatory Limitations: No Limitations - History of Present Illness Initial comments: 61 YO COMES TO ER FROM WORK WHERE A STACK OF PALLETS FELL HITTING THE TOP OF HIS HEAD. ABRASION TO HEAD NOTED. NO LOC. NO N/V. NO SZ ACTIVITY. AMBULATORY TO ER. THIS WAS A WITNESSED INJURY NO DOWN TIME. NEURO INTACT PERRL CN INTACT -: Sudden, hour(s) Location: head Severity scale (0 -10): 3 Quality: aching Consistency: constant Improves with: none Worsens with: none Associated Symptoms: denies other symptoms. denies: confusion, chest pain, cough, diaphoresis, fever/chills, headaches, loss of appetite, malaise, nausea/vomiting, rash, seizure, shortness of breath, syncope, weakness Treatments Prior to Arrival: none - Related Data Home Medications Medication Instructions Recorded Confirmed Last Taken Clopidogrel Bisulfate [Plavix] 75 mg PO DAILY 03/19/16 03/19/16 03/12/16 Lisinopril [Zestril TAB] 2.5 mg PO QDAY 03/19/16 03/19/16 03/12/16 Simvastatin (NF) [Zocor TAB] 40 mg PO QHS 03/19/16 03/19/16 03/12/16 allopurinoL [Zyloprim] 100 mg PO QDAY 03/19/16 03/19/16 03/12/16 carvediloL [Coreg] 6.25 mg PO BID 03/19/16 03/19/16 03/12/16 Previous Rx's Medication Instructions Recorded Last Taken Type metFORMIN [Glucophage] 500 mg PO BID #60 10/26/21 Unknown Rx Allergies Allergy/AdvReac Type Severity Reaction Status Date / Time No Known Allergies Allergy Verified 03/19/16 06:06 ED Review of Systems ROS: Stated complaint: HEAD INJURY Other details as noted in HPI Comment: All other systems reviewed and negative ED Past Medical Hx - Past Medical History Previous Medical History?: Yes Hx Hypertension: Yes Hx CVA: No Hx Heart Attack/AMI: Yes (2009) Hx Congestive Heart Failure: Yes Hx Diabetes: Yes Hx Asthma: No Hx COPD: No Additional medical history: OBESE - Surgical History Past Surgical History?: Yes Hx Coronary Stent: Yes (x2) Additional Surgical History: coronary bypass sx - Family History Family history: no significant - Social History Smoking Status: Never Smoker Substance Use Type: Alcohol - Medications Home Medications: Home Medications Medication Instructions Recorded Confirmed Last Taken Type Clopidogrel Bisulfate [Plavix] 75 mg PO DAILY 03/19/16 03/19/16 03/12/16 History Lisinopril [Zestril TAB] 2.5 mg PO QDAY 03/19/16 03/19/16 03/12/16 History Simvastatin (NF) [Zocor TAB] 40 mg PO QHS 03/19/16 03/19/16 03/12/16 History allopurinoL [Zyloprim] 100 mg PO QDAY 03/19/16 03/19/16 03/12/16 History carvediloL [Coreg] 6.25 mg PO BID 03/19/16 03/19/16 03/12/16 History metFORMIN [Glucophage] 500 mg PO BID #60 10/26/21 Unknown Rx ED Physical Exam - General Limitations: No Limitations General appearance: alert, in no apparent distress - Head Head exam: Present: atraumatic, normocephalic - Eye Eye exam: Present: normal appearance - ENT ENT exam: Present: mucous membranes moist - Neck Neck exam: Present: normal inspection - Respiratory Respiratory exam: Present: normal lung sounds bilaterally. Absent: respiratory distress - Cardiovascular Cardiovascular Exam: Present: regular rate, normal rhythm. Absent: systolic murmur, diastolic murmur, rubs, gallop - GI/Abdominal GI/Abdominal exam: Present: soft, normal bowel sounds - Rectal Rectal exam: Present: deferred - Extremities Exam Extremities exam: Present: normal inspection - Back Exam Back exam: Present: normal inspection - Neurological Exam Neurological exam: Present: alert, oriented X3 - Psychiatric Psychiatric exam: Present: normal affect, normal mood - Skin Skin exam: Present: warm, dry, normal color, other. Absent: rash - Other Other exam information: WOUND TO THE TOP IF HEAD NOTED CONTUSED/IRREGULAR ABRASION WOUND CLEANED NO CLOSURE NEEDED ED Course Vital Signs 10/26/21 10:30 Temperature 98.3 F Pulse Rate 98 H Respiratory 14 Rate Blood Pressure 152/86 O2 Sat by Pulse 97 Oximetry ED Medical Decision Making - Lab Data Result diagrams: 10/26/21 10:46 10/26/21 10:46 - Radiology Data Radiology results: report reviewed, image reviewed NAP - Medical Decision Making Labs 10/26/21 10/26/21 10/26/21 10:46 10:46 11:40 WBC 7.8 RBC 4.85 Hgb 15.3 H Hct 44.6 MCV 92 MCH 32 MCHC 34 RDW 13.0 L Plt Count 341 Lymph % (Auto) 20.1 [place] % (Auto) 7.3 Eos % (Auto) 1.5 Baso % (Auto) 0.8 Lymph # (Auto) 1.6 [place] # (Auto) 0.6 Eos # (Auto) 0.1 Baso # (Auto) 0.1 Seg Neutrophils % 70.3 H Seg Neutrophils # 5.5 PT 14.1 INR 0.98 APTT 26.5 Sodium 135 L Potassium 4.0 Chloride 99.8 Carbon Dioxide 22 Anion Gap 17 BUN 12 Creatinine 0.7 L Estimated GFR > 60 BUN/Creatinine Ratio 17 Glucose 309 H Calcium 9.5 Total Bilirubin 0.60 AST 15 ALT 15 Alkaline Phosphatase 105 Total Protein 6.8 Albumin 3.9 Albumin/Globulin Ratio 1.3 Vital Signs 10/26/21 10:30 Temperature 98.3 F Pulse Rate 98 H Respiratory 14 Rate Blood Pressure 152/86 O2 Sat by Pulse 97 Oximetry WOUND CARE TDAP GIVEN CT NAP LABS NOTED PT HAS DM II BUT IS NON ADHERENT WITH HIS METFORMIN 1LNS/ 4 U REGULAR INSULIN GIVEN RX FOR METFORMIN GIVEN PT DENIES ANY CP/SOB/DIZZINESS NO PRODROME OF ILLNESS PRIOR TO EVENT AT WORK K[place]LEIGH DISCUSSED WITH PT HIS NEED TO FOLLOW WITH PCP HE HAS HTN/HLD/DM AND IS OBESE. HE HAS ALREADY HAD ACS AND CARES FOR HIS GRANDKIDS HES ON COREG/PLAVIX AT HOME HE HAS A CARDS APPNT NEXT WEEK PT VERBALIZES UNDERSTANDING OF THE ABOVE FOR HIS HEAD INJURY TODAY- HE HAS BEEN GIVEN WOUND CARE INSTRUCTIONS PT BEING DC HOME WITH DC PLAN OF CARE INCLUDING DIET, MEDS, ACTIVITY AND FOLLOW UP. HE VERBALIZES UNDERSTANDING OF PLAN OF CARE. - Differential Diagnosis RO TBI/ABRASION Critical care attestation.: If time is entered above; I have spent that time in minutes in the direct care of this critically ill patient, excluding procedure time. ED Disposition Clinical Impression: Abrasion head, Contusion of head, Type 2 diabetes mellitus with hyperglycemia, Medically noncompliant Disposition: HOME / SELF CARE / HOMELESS Is pt being admited?: No Does the pt Need Aspirin: No Condition: Stable Instructions: Abrasion, Diabetes Mellitus Type 2 in Adults (ED) Additional Instructions: KEEP HEAD WOUND CLEAN AND DRY LOW FAT/LOW SALT/LOW CARB DIABETIC DIET MOTRIN OR TYLENOL FOR PAIN FOLLOW UP WITH CARDS PLANNED FOR FOLLOW UP FOLLOW UP WITH PCP FOR DM MANAGEMENT TAKE METFORMIN INSTRUCTED TDAP WAS UPDATED TODAY REFERRAL TO PCP HERE BELOW Prescriptions: metFORMIN [Glucophage] 500 mg PO BID #60 Referrals: CELIO WORLEY MD [Staff Physician] - 3-5 Days Forms: Work/School Release Form(ED) Time of Disposition: 16:24
[2021-10-26 17:17] VITALS: BP 156/91
== END 2021-10-26 17:16 | disposition home or self-care (01) ==
LOC: ED 09:46
DX: S00.93XA Contusion of unspecified part of head, initial encounter (principal); E11.65 Type 2 diabetes mellitus with hyperglycemia; F10.20 Alcohol dependence, uncomplicated; I10 Essential (primary) hypertension; X58.XXXA Exposure to other specified factors, initial encounter; Y93.89 Activity, other specified; Y92.89 Other specified places as the place of occurrence of the external cause; Y99.8 Other external cause status
CPT/HCPCS: 36415; 70450; 72125; 80053; 85025; 85610; 85730; 90471; 90715; 93005; 96361; 96374; 99284; J7030; Q9967; J1815